=== PATIENT | female | born 1970 | race Caucasian/White ===

== ENCOUNTER 2016-08-21 07:45 | Emergency (ER) | payer MEDICARE, MEDICAID ==
[~2016-08-21] VITALS: Ht 175.3 cm; Wt 86.5 kg
[~2016-08-21 07:45] MED LIST: CEPH-376 PO; CLAR500T3 PO; CLON0.2T PO; DIAZ5TAB PO; FURO-92 PO; FURO-93 PO; LEVE100020 PO; LEVE500T38 PO; MAGN400T7 PO; METO50TA82 PO; ONDA4TAB7 PO; OXYC-229 PO; OXYC30TA74 PO; PANT40TA5 PO; PHEN100C PO; ZOLP10TA PO
[2016-08-21] MEDS ORDERED: morphine SULFATE 10 MG/ML, 1ML IVPush ONE (08:00)
[2016-08-21] MEDS ORDERED: ONDANSETRON 2MG/ML, 2ML IVPush ONE (08:00)
[2016-08-21] MEDS ORDERED: ONDANSETRON 2MG/ML, 2ML ONE (08:12)
[2016-08-21] MEDS ORDERED: MORPHINE SULFATE 4 MG/ML, 1ML ONE (08:12)
[2016-08-21] MEDS ORDERED: HYDROcodone/APAP 10/325 MG TABLET PO PRN (10:30)
[2016-08-21] MEDS ORDERED: HYDROcodone/APAP 10/325 MG TABLET ONE (10:36)
[2016-08-21 11:23] VITALS: BP 118/84
== END 2016-08-21 11:27 | disposition home or self-care (01) ==
LOC: ED 09:02
DX: S33.5XXA Sprain of ligaments of lumbar spine, initial encounter (principal); J44.9 Chronic obstructive pulmonary disease, unspecified; I50.9 Heart failure, unspecified; Z90.89 Acquired absence of other organs; I25.2 Old myocardial infarction; W18.30XA Fall on same level, unspecified, initial encounter; Y93.89 Activity, other specified; Y92.009 Unspecified place in unspecified non-institutional (private) residence as the place of occurrence of the external cause; Y99.9 Unspecified external cause status
CPT/HCPCS: 72110; 96374; 96375; 99284; J2270; J2405

== ENCOUNTER 2016-10-17 15:11 | Emergency (ER) | payer MEDICARE, MEDICAID ==
[~2016-10-17] VITALS: Ht 167.6 cm; Wt 77.0 kg
[2016-10-17] MEDS ORDERED: MORPHINE SULFATE 4 MG/ML, 1ML IVPush PRN (15:30)
[2016-10-17] MEDS ORDERED: PROMETHAZINE 25 MG/ML, 1ML IM ONE (15:30)
[2016-10-17] MEDS ORDERED: SODIUM CHLORIDE FLUSH 10ML SYR IVF ONE (15:30)
[2016-10-17] MEDS ORDERED: DIPHENHYDRAMINE 50 MG/ML, 1ML IVPush ONE (15:30)
[2016-10-17] MEDS ORDERED: SODIUM CHLORIDE 0.9% 1,000ML IVBOLUS ONE (15:30)
[2016-10-17] MEDS ORDERED: PROMETHAZINE 25 MG/ML, 1ML ONE (15:58)
[2016-10-17] MEDS ORDERED: MORPHINE SULFATE 4 MG/ML, 1ML ONE (15:59)
[2016-10-17] MEDS ORDERED: DIPHENHYDRAMINE 50 MG/ML, 1ML ONE (15:59)
[2016-10-17 16:06] LABS: ASPARTATE AMINO TRANSFERASE 33 U/L (15-37); BLOOD UREA NITROGEN 12 mg/dL (7-18)
[2016-10-17] MEDS ORDERED: GABA600T2 PO (16:31)
[2016-10-17] MEDS ORDERED: HYDR-3144 PO (16:31)
[2016-10-17] MEDS ORDERED: NORT50CA PO (16:31)
[2016-10-17] MEDS ORDERED: HYDROcodone/APAP 10/325 MG TABLET PO PRN (17:00)
[2016-10-17] MEDS ORDERED: HYDROcodone/APAP 10/325 MG TABLET ONE (17:40)
[2016-10-17 17:45] VITALS: BP 100/70
== END 2016-10-17 17:50 | disposition home or self-care (01) ==
LOC: ED 16:56
DX: R10.84 Generalized abdominal pain (principal); R11.2 Nausea with vomiting, unspecified; J44.9 Chronic obstructive pulmonary disease, unspecified; I25.2 Old myocardial infarction; G40.909 Epilepsy, unspecified, not intractable, without status epilepticus; Z85.118 Personal history of other malignant neoplasm of bronchus and lung; Z98.84 Bariatric surgery status; Z88.5 Allergy status to narcotic agent; Z88.6 Allergy status to analgesic agent
CPT/HCPCS: 36415; 76700; 80053; 83690; 85025; 85610; 85730; 96372; 99285; J2550

== ENCOUNTER 2016-11-25 01:28 | Emergency (ER) | payer MEDICAID, MEDICARE ==
[~2016-11-25] VITALS: Ht 167.6 cm; Wt 80.0 kg
[~2016-11-25 01:28] MED LIST changes: +GABA600T2 PO; +HYDR-3144 PO; +NORT50CA PO
[2016-11-25] MEDS ORDERED: PROMETHAZINE 25 MG/ML, 1ML IM ONE (02:00)
[2016-11-25] MEDS ORDERED: PROMETHAZINE 25 MG/ML, 1ML ONE (02:05)
[2016-11-25 03:42] VITALS: BP 157/106
== END 2016-11-25 03:44 | disposition home or self-care (01) ==
LOC: ED 02:38
DX: R11.2 Nausea with vomiting, unspecified (principal); I50.9 Heart failure, unspecified; I25.2 Old myocardial infarction; G40.909 Epilepsy, unspecified, not intractable, without status epilepticus; J44.9 Chronic obstructive pulmonary disease, unspecified; Z88.6 Allergy status to analgesic agent; Z88.8 Allergy status to other drugs, medicaments and biological substances
CPT/HCPCS: 96372; 99283; J2550

== ENCOUNTER 2016-12-18 07:57 | Emergency (ER) | payer MEDICARE ==
[~2016-12-18] VITALS: Ht 167.6 cm; Wt 75.4 kg
[~2016-12-18 07:57] MED LIST changes: -HYDR-3144 PO; +HYDR-3245 PO; -LEVE500T38 PO; +LEVE500T54 PO; -OXYC-229 PO; +OXYC-307 PO
[2016-12-18] MEDS ORDERED: SODIUM CHLORIDE FLUSH 10ML SYR IVF ONE (08:30)
[2016-12-18] MEDS ORDERED: SODIUM CHLORIDE 0.9% 1,000ML IVBOLUS ONE (08:30)
[2016-12-18] MEDS ORDERED: HYDROcodone/APAP 5/325 TABLET PO ONE (08:30)
[2016-12-18] MEDS ORDERED: HYDROcodone/APAP 5/325 TABLET ONE (08:43)
[2016-12-18] MEDS ORDERED: OXYcodone/APAP 5/325MG TABLET ONE (10:27)
[2016-12-18] MEDS ORDERED: OXYcodone/APAP 5/325MG TABLET PO ONE (10:30)
[2016-12-18 11:17] VITALS: BP 142/80
== END 2016-12-18 11:19 | disposition home or self-care (01) ==
LOC: ED 10:33
DX: S42.032A Displaced fracture of lateral end of left clavicle, initial encounter for closed fracture (principal); S43.102A Unspecified dislocation of left acromioclavicular joint, initial encounter; I50.9 Heart failure, unspecified; J44.9 Chronic obstructive pulmonary disease, unspecified; W01.0XXA Fall on same level from slipping, tripping and stumbling without subsequent striking against object, initial encounter; Y93.01 Activity, walking, marching and hiking; Y92.480 Sidewalk as the place of occurrence of the external cause; Y99.8 Other external cause status
CPT/HCPCS: 99284

== ENCOUNTER 2017-02-11 07:56 | Emergency (ER) | payer MEDICARE, MEDICAID ==
[~2017-02-11] VITALS: Ht 167.6 cm; Wt 77.2 kg
[2017-02-11] MEDS ORDERED: OXYcodone/APAP 7.5/325MG TABLET PO ONE (08:30)
[2017-02-11] MEDS ORDERED: OXYcodone/APAP 7.5/325MG TABLET ONE (08:30)
[2017-02-11 09:32] LABS: BLOOD UREA NITROGEN 14 mg/dL (7-18)
[2017-02-11 09:42] LABS: HEMATOCRIT 32.2 % (34.6-47.8); HEMOGLOBIN 10.5 g/dL (11.7-16.4); WHITE BLOOD COUNT 6.4 x10^3/uL (3.4-10)
[2017-02-11 10:35] VITALS: BP 146/90
== END 2017-02-11 10:37 | disposition home or self-care (01) ==
LOC: ED 10:20
DX: S20.212A Contusion of left front wall of thorax, initial encounter (principal); S40.012A Contusion of left shoulder, initial encounter; G40.319 Generalized idiopathic epilepsy and epileptic syndromes, intractable, without status epilepticus; X58.XXXA Exposure to other specified factors, initial encounter; Y93.89 Activity, other specified; Y92.89 Other specified places as the place of occurrence of the external cause; Y99.9 Unspecified external cause status
CPT/HCPCS: 36415; 71020; 80048; 82040; 85025; 93005; 99285

== ENCOUNTER 2017-03-12 11:16 | Emergency (ER) | payer MEDICARE, MEDICAID ==
[~2017-03-12] VITALS: Ht 167.6 cm; Wt 81.0 kg
[2017-03-12] MEDS ORDERED: HYDROcodone/APAP 5/325 TABLET PO ONE (11:30)
[2017-03-12] MEDS ORDERED: HYDROcodone/APAP 5/325 TABLET ONE (11:45)
[2017-03-12] MEDS ORDERED: PLEASE ENTER HEIGHT AND WEIGHT MC SCH (12:00)
[2017-03-12] MEDS ORDERED: CYCLOBENZAPRINE 10 MG TABLET ONE (12:17)
[2017-03-12] MEDS ORDERED: OXYC-306 PO (12:21)
[2017-03-12] MEDS ORDERED: CYCLOBENZAPRINE 10 MG TABLET PO ONE (13:00)
[2017-03-12 13:17] VITALS: BP 143/92
== END 2017-03-12 13:36 | disposition home or self-care (01) ==
LOC: ED 11:31
DX: S33.5XXA Sprain of ligaments of lumbar spine, initial encounter (principal); S23.3XXA Sprain of ligaments of thoracic spine, initial encounter; S13.4XXA Sprain of ligaments of cervical spine, initial encounter; J44.9 Chronic obstructive pulmonary disease, unspecified; I11.0 Hypertensive heart disease with heart failure; I50.9 Heart failure, unspecified; I25.2 Old myocardial infarction; Z85.118 Personal history of other malignant neoplasm of bronchus and lung; W01.0XXA Fall on same level from slipping, tripping and stumbling without subsequent striking against object, initial encounter; Y93.89 Activity, other specified; Y92.410 Unspecified street and highway as the place of occurrence of the external cause; Y99.9 Unspecified external cause status
CPT/HCPCS: 72072; 72110; 72125; 99284

== ENCOUNTER → 2017-04-22 | Outpatient (CLI) | payer MEDICARE, MEDICAID ==
[~2017-04-22] MED LIST changes: +OXYC-306 PO
[2017-04-22 14:30] LABS: BASOPHILS # (AUTO) 0.02 x10^3/uL (0-0.1); BASOPHILS % (AUTO) 0 % (0-1); EOSINOPHILS # (AUTO) 0.15 x10^3/uL (0-0.4); EOSINOPHILS % (AUTO) 2 % (1-7); LYMPHOCYTES # (AUTO) 1.47 x10^3/uL (1-3.4); LYMPHOCYTES % (AUTO) 23 % (22-44); MD NO; MEAN CORPUSCULAR HEMOGLOBIN 29.1 pg (27.0-34.8); MEAN CORPUSCULAR HGB CONC 32.5 g/dL (32.4-35.8); MEAN CORPUSCULAR VOLUME 89.7 fL (80-100); MEAN PLATELET VOLUME 7.9 fL (7.4-10.4); MONOCYTES # (AUTO) 0.79 x10^3/uL (0.2-0.8); MONOCYTES % (AUTO) 13 % (2-9); NEUTROPHILS # (AUTO) 3.86 x10^3/uL (1.8-6.8); NEUTROPHILS % (AUTO) 61 % (42-75); PLATELET COUNT 323 x10^3/uL (130-400); RED BLOOD COUNT 3.52 x10^6/uL (3.82-5.3); RED CELL DISTRIBUTION WIDTH 15.4 % (9.6-15.2)
[2017-04-22 14:44] LABS: ALANINE AMINOTRANSFERASE 25 U/L (12-78); ALBUMIN 2.7 g/dL (3.4-5.0); ANION GAP 4 mmol/L (5-15); CALCIUM 8.9 mg/dL (8.5-10.1); CHLORIDE 98 mmol/L (98-107); CREATININE 0.64 mg/dL (0.55-1.02)
[2017-04-22 14:46] LABS: ALKALINE PHOSPHATASE 229 U/L (45-117); BILIRUBIN,TOTAL 0.4 mg/dL (0.2-1.0); TOTAL PROTEIN 6.3 g/dL (6.4-8.2)
== END | disposition home or self-care (01) ==
LOC: LAB 13:44
PROVIDERS: ATTEND Family Medicine
DX: D64.9 Anemia, unspecified (principal)
CPT/HCPCS: 36415; 80053; 85025

== ENCOUNTER 2017-07-05 05:14 | Day surgery (SDC) | payer MEDICARE, MEDICAID ==
[~2017-07-05] VITALS: Ht 167.6 cm; Wt 81.6 kg
[~2017-07-05 05:14] MED LIST changes: +ALBU0.63 NEB; +CLON0.1T PO; +CLON0.2T10 PO; +DIPH12.532 PO; +DIVA125T2 PO; +DIVA250T6 PO; +FENT1PAT77 EXT; +GABA800T2 PO; +LACO150T PO; +LACO50TA PO; +LEVE750T37 PO; +LEVE750T8 PO; +METO25TA35 PO; +OMEP10CA4 PO
[2017-07-05] MEDS ORDERED: LACTATED RINGERS 1,000 ML IV SCH (05:54)
[2017-07-05 05:57] VITALS: BP 114/77
[2017-07-05] MEDS ORDERED: LIDOCAINE-MPF 1%, 2ML INFIL ONE (06:00)
[2017-07-05 06:01] VITALS: BP 114/77
[2017-07-05] MEDS ORDERED: LIDOCAINE-MPF 1%, 2ML ONE (06:05)
[2017-07-05] MEDS ORDERED: LEVE100S6 PO (06:22)
[2017-07-05] MEDS ORDERED: OXYC20TA2 PO (06:24)
[2017-07-05] MEDS ORDERED: TIOT4MIS3 INH ×2 (06:25→06:55)
[2017-07-05] MEDS ORDERED: DIVA250T4 PO ×2 (06:27→06:55)
[2017-07-05] MEDS ORDERED: OxyconTIN ER 20 MG TAB.ER ONE (06:38)
[2017-07-05] MEDS ORDERED: ACETAMINOPHEN 500 MG TABLET ONE (06:40)
[2017-07-05] MEDS ORDERED: BUPIVACAINE/PF 0.25% ONE ×2 (06:43→09:29)
[2017-07-05] MEDS ORDERED: EPINEPHRINE 1 MG/ML, 1ML ONE (06:43)
[2017-07-05] MEDS ORDERED: ACETAMINOPHEN 500 MG TABLET PO ONE (07:00)
[2017-07-05] MEDS ORDERED: OxyconTIN ER 20 MG TAB.ER PO ONE (07:00)
[2017-07-05] MEDS ORDERED: FENTANYL PF 250 MCG/5ML ONE (07:11)
[2017-07-05] MEDS ORDERED: MIDAZOLAM 1 MG/ML, 2ML ONE (07:11)
[2017-07-05] MEDS ORDERED: ONDANSETRON 2MG/ML, 2ML ONE (07:13)
[2017-07-05] MEDS ORDERED: SUCCINYLCHOLINE 20 MG/ML, 10ML ONE (07:13)
[2017-07-05] MEDS ORDERED: PHENYLEPHRINE 10 MG/ML ONE (07:13)
[2017-07-05] MEDS ORDERED: DEXAMETHASONE 4 MG/ML, 1ML ONE (07:13)
[2017-07-05] MEDS ORDERED: PROPOFOL 10 MG/ML, 20ML ONE (07:13)
[2017-07-05] MEDS ORDERED: CEFAZOLIN 1,000 MG ONE (07:13)
[2017-07-05] MEDS ORDERED: KETAMINE 10 MG/ML, 20ML ONE (07:15)
[2017-07-05] MEDS ORDERED: ALBUTEROL SULFATE 2.5 MG/3 ML NPPB PRN (08:00)
[2017-07-05] MEDS ORDERED: PROMETHAZINE 12.5 MG SUPP PR PRN (08:00)
[2017-07-05] MEDS ORDERED: ONDANSETRON 2MG/ML, 2ML IVPush PRN (08:00)
[2017-07-05] MEDS ORDERED: FENTANYL PF 100 MCG/2ML IV PRN (08:00)
[2017-07-05] MEDS ORDERED: morphine SULFATE 10 MG/ML, 1ML IV PRN (08:00)
[2017-07-05] MEDS ORDERED: LABETALOL 5MG/ML, 20ML IV PRN (08:00)
[2017-07-05] MEDS ORDERED: OXYcodone 5 MG/5 ML ORAL.SOL UDC PO PRN (08:00)
[2017-07-05] MEDS ORDERED: MIDAZOLAM 1 MG/ML, 2ML IV PRN (08:00)
[2017-07-05] MEDS ORDERED: hydrALAzine 20 MG/ML, 1ML IV PRN (08:00)
[2017-07-05] MEDS ORDERED: MEPERIDINE/PF 25MG/0.5ML IVPush PRN (08:00)
[2017-07-05] MEDS ORDERED: hydrALAzine 20 MG/ML, 1ML ONE (09:39)
[2017-07-05] MEDS ORDERED: DIAZEPAM 5 MG TABLET ONE (12:40)
[2017-07-05] MEDS ORDERED: DIAZEPAM 5 MG TABLET PO ONE (13:00)
== END 2017-07-05 13:30 ==
LOC: OUT 05:14
PROVIDERS: ATTEND Orthopaedic Surgery
DX: S43.432A Superior glenoid labrum lesion of left shoulder, initial encounter (principal); M19.012 Primary osteoarthritis, left shoulder; M94.8X1 Other specified disorders of cartilage, shoulder; D64.9 Anemia, unspecified; I10 Essential (primary) hypertension; J45.909 Unspecified asthma, uncomplicated; X58.XXXA Exposure to other specified factors, initial encounter; Y93.89 Activity, other specified; Y92.89 Other specified places as the place of occurrence of the external cause; Y99.8 Other external cause status; Z88.8 Allergy status to other drugs, medicaments and biological substances
CPT/HCPCS: 23552; C1713; C1762; J0171; J0330; J0360; J0690; J1100; J2250; J2370; J2405; J2704; J3010; J3490

== ENCOUNTER 2017-07-16 11:30 | Emergency (ER) | payer MEDICARE, MEDICAID ==
[~2017-07-16] VITALS: Ht 167.6 cm; Wt 77.7 kg
[~2017-07-16 11:30] MED LIST changes: +DIVA250T4 PO; +LEVE100S6 PO; +OXYC20TA2 PO; +TIOT4MIS3 INH
[2017-07-16 12:47] LABS: BASOPHILS # (AUTO) 0.01 x10^3/uL (0-0.1); BASOPHILS % (AUTO) 0 % (0-1); EOSINOPHILS # (AUTO) 0.03 x10^3/uL (0-0.4); EOSINOPHILS % (AUTO) 1 % (1-7); LYMPHOCYTES # (AUTO) 0.86 x10^3/uL (1-3.4); LYMPHOCYTES % (AUTO) 19 % (22-44); MD NO; MEAN CORPUSCULAR HEMOGLOBIN 25.7 pg (27.0-34.8); MEAN CORPUSCULAR VOLUME 80.3 fL (80-100); MEAN PLATELET VOLUME 7.3 fL (7.4-10.4); MONOCYTES # (AUTO) 0.16 x10^3/uL (0.2-0.8); MONOCYTES % (AUTO) 4 % (2-9); NEUTROPHILS # (AUTO) 3.54 x10^3/uL (1.8-6.8); NEUTROPHILS % (AUTO) 77 % (42-75); PLATELET COUNT 347 x10^3/uL (130-400); RED BLOOD COUNT 4.15 x10^6/uL (3.82-5.3); RED CELL DISTRIBUTION WIDTH 15.8 % (9.6-15.2)
[2017-07-16 13:00] LABS: ALBUMIN 2.6 g/dL (3.4-5.0); ANION GAP 6 mmol/L (5-15); CALCIUM 8.5 mg/dL (8.5-10.1); CHLORIDE 103 mmol/L (98-107); CREATININE 0.55 mg/dL (0.55-1.02)
[2017-07-16 13:02] LABS: TROPONIN I < 0.015 ng/mL (0.000-0.045)
[2017-07-16] MEDS ORDERED: OXYcodone/APAP 10/325MG TABLET ONE (13:57)
[2017-07-16] MEDS ORDERED: OXYcodone/APAP 10/325MG TABLET PO ONE (14:00)
[2017-07-16 14:30] VITALS: BP 161/96
== END 2017-07-16 14:32 | disposition home or self-care (01) ==
LOC: ED 13:08
DX: S40.012A Contusion of left shoulder, initial encounter (principal); W18.39XA Other fall on same level, initial encounter; Y93.89 Activity, other specified; Y99.8 Other external cause status; Y92.89 Other specified places as the place of occurrence of the external cause
CPT/HCPCS: 36415; 71045; 80048; 82040; 84484; 85025; 93005; 99285

== ENCOUNTER 2017-07-21 12:44 | Emergency (ER) | payer MEDICARE, MEDICAID ==
[~2017-07-21] VITALS: Ht 167.6 cm; Wt 82.4 kg
[2017-07-21 13:26] LABS: BASOPHILS # (AUTO) 0.03 x10^3/uL (0-0.1); BASOPHILS % (AUTO) 1 % (0-1); EOSINOPHILS # (AUTO) 0.11 x10^3/uL (0-0.4); EOSINOPHILS % (AUTO) 2 % (1-7); LYMPHOCYTES # (AUTO) 1.23 x10^3/uL (1-3.4); LYMPHOCYTES % (AUTO) 19 % (22-44); MD NO; MEAN CORPUSCULAR HGB CONC 31.5 g/dL (32.4-35.8); MEAN CORPUSCULAR VOLUME 82.6 fL (80-100); MEAN PLATELET VOLUME 7.7 fL (7.4-10.4); MONOCYTES # (AUTO) 0.43 x10^3/uL (0.2-0.8); MONOCYTES % (AUTO) 7 % (2-9); NEUTROPHILS # (AUTO) 4.66 x10^3/uL (1.8-6.8); NEUTROPHILS % (AUTO) 72 % (42-75); PLATELET COUNT 287 x10^3/uL (130-400); RED BLOOD COUNT 3.45 x10^6/uL (3.82-5.3); RED CELL DISTRIBUTION WIDTH 17.6 % (9.6-15.2)
[2017-07-21 13:37] LABS: ALBUMIN 2.7 g/dL (3.4-5.0); ANION GAP 5 mmol/L (5-15); CALCIUM 8.2 mg/dL (8.5-10.1); CHLORIDE 103 mmol/L (98-107); CREATININE 0.59 mg/dL (0.55-1.02)
[2017-07-21 13:40] LABS: TROPONIN I < 0.015 ng/mL (0.000-0.045)
[2017-07-21 14:00] VITALS: BP 103/63
[2017-07-21] MEDS ORDERED: SODIUM CHLORIDE FLUSH 10ML SYR IVF ONE (15:00)
[2017-07-21] MEDS ORDERED: ACETAMINOPHEN 500 MG TABLET PO PRN (15:30)
[2017-07-21] MEDS ORDERED: SODIUM CHLORIDE FLUSH 10ML SYR IVF PRN (15:30)
[2017-07-21] MEDS ORDERED: DIVALPROEX 250 MG TABLET.DR PO SCH ×2 (16:00→16:15)
[2017-07-21] MEDS ORDERED: IRON SUCROSE COMPLEX 100MG/5ML IV ONE (17:30)
[2017-07-21] MEDS ORDERED: LEVETIRACETAM 100 MG/ML ORAL SOL PO SCH ×2 (21:00)
[2017-07-21] MEDS ORDERED: TEMPLATE NON-FORMULARY MED. (Tiotropium Br/Olodaterol HCl (Stiolto Respimat Inhal Spray) 2 INH SCH ×3 (21:00)
[2017-07-21] MEDS ORDERED: METOPROLOL TARTRATE 25 MG TABLET PO SCH ×3 (21:00)
[2017-07-22] MEDS ORDERED: DIAZEPAM 5 MG TABLET PO SCH ×2 (09:00)
[2017-07-22] MEDS ORDERED: IRON SUCROSE COMPLEX 100MG/5ML IV SCH (09:00)
== END 2017-07-21 15:47 | disposition left against medical advice (07) ==
LOC: ED 15:06 → UNDOADMIN 15:07 → EDIP 15:07 → ED 15:22
DX: D62 Acute posthemorrhagic anemia (principal); R53.1 Weakness; I11.0 Hypertensive heart disease with heart failure; I50.9 Heart failure, unspecified; J44.9 Chronic obstructive pulmonary disease, unspecified; Z85.118 Personal history of other malignant neoplasm of bronchus and lung; I25.2 Old myocardial infarction
CPT/HCPCS: 36415; 71046; 80048; 82040; 83880; 84484; 85025; 99285

== ENCOUNTER 2017-11-14 08:36 | Inpatient (IN) | payer MEDICARE, MEDICAID ==
[~2017-11-14] VITALS: Ht 167.6 cm; Wt 81.5 kg
[~2017-11-14 08:36] MED LIST changes: +DIVA-59 PO; -DIVA250T6 PO
[2017-11-14] MEDS ORDERED: SODIUM CHLORIDE 0.9% 1,000ML IVBOLUS ONE (09:00)
[2017-11-14] MEDS ORDERED: PLEASE ENTER HEIGHT AND WEIGHT MC SCH (09:00)
[2017-11-14] MEDS ORDERED: DIPHENHYDRAMINE 50 MG/ML, 1ML IVPush ONE (09:00)
[2017-11-14] MEDS ORDERED: FAMOTIDINE 20 MG/2 ML IVP ONE (09:00)
[2017-11-14] MEDS ORDERED: ONDANSETRON 2MG/ML, 2ML IVPush ONE ×2 (09:00→12:00)
[2017-11-14] MEDS ORDERED: ONDANSETRON 2MG/ML, 2ML ONE ×3 (09:15→12:07)
[2017-11-14] MEDS ORDERED: FAMOTIDINE 20 MG/2 ML ONE (09:15)
[2017-11-14] MEDS ORDERED: DIPHENHYDRAMINE 50 MG/ML, 1ML ONE (09:15)
[2017-11-14] MEDS ORDERED: MAALOX/HYOSCYAMINE/LIDOCAINE 45 ML BTL ONE (10:17)
[2017-11-14] MEDS ORDERED: PROMETHAZINE 25 MG/ML, 1ML ONE (10:17)
[2017-11-14 10:28] LABS: BASOPHILS # (AUTO) 0.01 x10^3/uL (0-0.1); BASOPHILS % (AUTO) 0 % (0-1); EOSINOPHILS % (AUTO) 0 % (1-7); LYMPHOCYTES # (AUTO) 0.84 x10^3/uL (1-3.4); LYMPHOCYTES % (AUTO) 14 % (22-44); MD NO; MEAN CORPUSCULAR HEMOGLOBIN 25.8 pg (27.0-34.8); MEAN CORPUSCULAR HGB CONC 32.7 g/dL (32.4-35.8); MEAN CORPUSCULAR VOLUME 78.9 fL (80-100); MEAN PLATELET VOLUME 8.4 fL (7.4-10.4); MONOCYTES # (AUTO) 0.23 x10^3/uL (0.2-0.8); MONOCYTES % (AUTO) 4 % (2-9); NEUTROPHILS # (AUTO) 4.85 x10^3/uL (1.8-6.8); NEUTROPHILS % (AUTO) 82 % (42-75); PLATELET COUNT 241 x10^3/uL (130-400); RED BLOOD COUNT 4.23 x10^6/uL (3.82-5.3); RED CELL DISTRIBUTION WIDTH 17.8 % (9.6-15.2)
[2017-11-14 10:29] LABS: ALBUMIN 3.2 g/dL (3.4-5.0); ANION GAP 7 mmol/L (5-15); CALCIUM 8.9 mg/dL (8.5-10.1); CHLORIDE 104 mmol/L (98-107)
[2017-11-14 10:33] LABS: ALANINE AMINOTRANSFERASE 34 U/L (12-78); ALKALINE PHOSPHATASE 267 U/L (45-117); BILIRUBIN,TOTAL 0.3 mg/dL (0.2-1.0); CREATININE 0.56 mg/dL (0.55-1.02); TOTAL PROTEIN 6.9 g/dL (6.4-8.2)
[2017-11-14] MEDS ORDERED: MORPHINE SULFATE 4 MG/ML, 1ML ONE ×2 (10:44→12:07)
[2017-11-14 11:00] LABS: MICROSCOPIC NOT IND
[2017-11-14] MEDS ORDERED: MAALOX/HYOSCYAMINE/LIDOCAINE 45 ML BTL PO ONE (11:00)
[2017-11-14] MEDS ORDERED: MORPHINE SULFATE 4 MG/ML, 1ML IVPush ONE (11:00)
[2017-11-14] MEDS ORDERED: PROMETHAZINE 25 MG/ML, 1ML IM ONE (11:00)
[2017-11-14 11:05] LABS: CULTURE INDICATED? NO
[2017-11-14] MEDS ORDERED: OXYMETAZOLINE NASAL SPRAY 0.05%, 15ML ONE (11:58)
[2017-11-14] MEDS ORDERED: OXYMETAZOLINE NASAL SPRAY 0.05%, 15ML NAS ONE (12:00)
[2017-11-14] MEDS ORDERED: morphine SULFATE 10 MG/ML, 1ML IVPush ONE (12:00)
[2017-11-14] MEDS ORDERED: NORT10CA PO (12:59)
[2017-11-14] MEDS ORDERED: OXYC30TA PO (12:59)
[2017-11-14] MEDS ORDERED: POLYETHYLENE GLYCOL 17 GM PACKET PO PRN (13:00)
[2017-11-14] MEDS ORDERED: DIPH25CA61 PO (13:00)
[2017-11-14] MEDS ORDERED: ACETAMINOPHEN 325 MG TABLET PO PRN (13:00)
[2017-11-14] MEDS ORDERED: DOCUSATE 100 MG CAPSULE PO PRN (13:00)
[2017-11-14 13:12] VITALS: BP 202/105
[2017-11-14] MEDS ORDERED: ENALAPRILAT 1.25 MG/ML, 2ML ONE (13:20)
[2017-11-14] MEDS ORDERED: DIPHENHYDRAMINE 25 MG CAPSULE PO PRN (13:30)
[2017-11-14] MEDS ORDERED: ENALAPRILAT 1.25 MG/ML, 2ML IV PRN (13:30)
[2017-11-14] MEDS ORDERED: hydrALAzine 20 MG/ML, 1ML IV PRN (13:30)
[2017-11-14] MEDS: OXYcodone IR 30 MG TABLET PO SCH ×3 (13:31→21:31)
[2017-11-14 13:55] VITALS: BP 177/102
[2017-11-14] MEDS: NS + 20MEQ KCL 1,000 ML IV SCH (14:09)
[2017-11-14 15:20] VITALS: BP 181/102
[2017-11-14] MEDS: DIVALPROEX 250 MG TABLET.DR PO SCH ×2 (15:52→20:11)
[2017-11-14] MEDS: GABAPENTIN 300 MG CAPSULE PO SCH ×2 (15:52→20:10)
[2017-11-14 17:33] VITALS: BP 110/71
[2017-11-14 19:04] VITALS: BP 104/69
[2017-11-14] MEDS: PROMETHAZINE 25 MG/ML, 1ML IM PRN (20:10)
[2017-11-14] MEDS: (Tiotropium Br/Olodaterol HCl (Stiolto Respimat Inhal Spray) 2 HOMEMEDPO SCH (20:11)
[2017-11-14] MEDS: NORTRIPTYLINE 10 MG CAPSULE PO SCH (20:11)
[2017-11-14] MEDS: METOPROLOL TARTRATE 50 MG TABLET PO SCH (20:12)
[2017-11-14] MEDS: LEVETIRACETAM 100 MG/ML ORAL SOL PO SCH (21:07)
[2017-11-15 01:17] VITALS: BP 125/79
[2017-11-15] MEDS: OXYcodone IR 30 MG TABLET PO PRN ×6 (01:24→21:54)
[2017-11-15] MEDS: NS + 20MEQ KCL 1,000 ML IV SCH (02:45)
[2017-11-15 04:42] LABS: BASOPHILS # (AUTO) 0.02 x10^3/uL (0-0.1); BASOPHILS % (AUTO) 0 % (0-1); EOSINOPHILS # (AUTO) 0.02 x10^3/uL (0-0.4); EOSINOPHILS % (AUTO) 0 % (1-7); LYMPHOCYTES # (AUTO) 2.09 x10^3/uL (1-3.4); LYMPHOCYTES % (AUTO) 34 % (22-44); MD NO; MEAN CORPUSCULAR HGB CONC 32.6 g/dL (32.4-35.8); MEAN CORPUSCULAR VOLUME 79.8 fL (80-100); MEAN PLATELET VOLUME 8.4 fL (7.4-10.4); MONOCYTES # (AUTO) 0.48 x10^3/uL (0.2-0.8); MONOCYTES % (AUTO) 8 % (2-9); NEUTROPHILS # (AUTO) 3.61 x10^3/uL (1.8-6.8); NEUTROPHILS % (AUTO) 58 % (42-75); PLATELET COUNT 258 x10^3/uL (130-400); RED BLOOD COUNT 3.61 x10^6/uL (3.82-5.3)
[2017-11-15 04:56] LABS: CALCIUM 8.2 mg/dL (8.5-10.1); CHLORIDE 107 mmol/L (98-107)
[2017-11-15 04:58] LABS: ANION GAP 5 mmol/L (5-15)
[2017-11-15] MEDS: ONDANSETRON 2MG/ML, 2ML IVPush PRN (06:16)
[2017-11-15 06:40] VITALS: BP 126/83
[2017-11-15 06:47] VITALS: BP 126/83
[2017-11-15] MEDS: PANTOPROZOLE 40MG TABLET PO SCH (08:54)
[2017-11-15] MEDS: DIVALPROEX 250 MG TABLET.DR PO SCH ×3 (08:55→21:03)
[2017-11-15] MEDS: GABAPENTIN 300 MG CAPSULE PO SCH ×3 (08:55→21:02)
[2017-11-15 08:56] VITALS: BP 138/83
[2017-11-15] MEDS: METOPROLOL TARTRATE 50 MG TABLET PO SCH ×2 (09:26→21:03)
[2017-11-15] MEDS: (Tiotropium Br/Olodaterol HCl (Stiolto Respimat Inhal Spray) 2 HOMEMEDPO SCH ×2 (09:26→21:00)
[2017-11-15] MEDS: LEVETIRACETAM 100 MG/ML ORAL SOL PO SCH (10:06)
[2017-11-15] MEDS: PROMETHAZINE 25 MG/ML, 1ML IM PRN ×2 (10:16→19:30)
[2017-11-15 12:56] VITALS: BP 136/82
[2017-11-15 19:05] VITALS: BP 122/83
[2017-11-15] MEDS: NORTRIPTYLINE 10 MG CAPSULE PO SCH (21:02)
[2017-11-15] MEDS: LEVETIRACETAM 500 MG TABLET PO SCH (21:54)
[2017-11-16 00:48] VITALS: BP 104/64
[2017-11-16] MEDS ORDERED: ONDANSETRON 4 MG TABLET ONE (02:37)
[2017-11-16] MEDS: ONDANSETRON 2MG/ML, 2ML IVPush PRN (02:39)
[2017-11-16] MEDS: OXYcodone IR 30 MG TABLET PO PRN ×3 (02:39→11:30)
[2017-11-16 04:42] LABS: BASOPHILS # (AUTO) 0.02 x10^3/uL (0-0.1); BASOPHILS % (AUTO) 0 % (0-1); EOSINOPHILS # (AUTO) 0.02 x10^3/uL (0-0.4); EOSINOPHILS % (AUTO) 0 % (1-7); LYMPHOCYTES # (AUTO) 1.23 x10^3/uL (1-3.4); LYMPHOCYTES % (AUTO) 15 % (22-44); MD NO; MEAN CORPUSCULAR HEMOGLOBIN 25.9 pg (27.0-34.8); MEAN CORPUSCULAR HGB CONC 32.4 g/dL (32.4-35.8); MEAN CORPUSCULAR VOLUME 79.9 fL (80-100); MEAN PLATELET VOLUME 8.3 fL (7.4-10.4); MONOCYTES % (AUTO) 10 % (2-9); NEUTROPHILS # (AUTO) 5.97 x10^3/uL (1.8-6.8); NEUTROPHILS % (AUTO) 74 % (42-75); PLATELET COUNT 273 x10^3/uL (130-400); RED BLOOD COUNT 3.77 x10^6/uL (3.82-5.3); RED CELL DISTRIBUTION WIDTH 18.5 % (9.6-15.2)
[2017-11-16 06:54] VITALS: BP 105/67
[2017-11-16] MEDS: GABAPENTIN 300 MG CAPSULE PO SCH (08:36)
[2017-11-16] MEDS: LEVETIRACETAM 500 MG TABLET PO SCH (08:36)
[2017-11-16] MEDS: DIVALPROEX 250 MG TABLET.DR PO SCH (08:36)
[2017-11-16] MEDS: PANTOPROZOLE 40MG TABLET PO SCH (08:36)
[2017-11-16] MEDS: METOPROLOL TARTRATE 50 MG TABLET PO SCH (08:36)
[2017-11-16] MEDS: (Tiotropium Br/Olodaterol HCl (Stiolto Respimat Inhal Spray) 2 HOMEMEDPO SCH (08:38)
[2017-11-16] MEDS ORDERED: PANT40TA5 PO (11:19)
== END 2017-11-16 12:45 | disposition home or self-care (01) | DRG 391 ==
LOC: ED 11:21 → EDIP 12:09 → 3NW 13:08 → DCLOUNGE 11-16 12:40
PROVIDERS: ADMIT Family Medicine; ATTEND Family Medicine
DX: A08.4 Viral intestinal infection, unspecified (principal); K25.4 Chronic or unspecified gastric ulcer with hemorrhage; J96.10 Chronic respiratory failure, unspecified whether with hypoxia or hypercapnia; Z87.11 Personal history of peptic ulcer disease; Z90.5 Acquired absence of kidney; D64.9 Anemia, unspecified; G40.909 Epilepsy, unspecified, not intractable, without status epilepticus; G89.29 Other chronic pain; I11.0 Hypertensive heart disease with heart failure; I25.2 Old myocardial infarction; I50.9 Heart failure, unspecified; J44.9 Chronic obstructive pulmonary disease, unspecified; R04.0 Epistaxis; Z79.891 Long term (current) use of opiate analgesic; Z85.118 Personal history of other malignant neoplasm of bronchus and lung; Z86.73 Personal history of transient ischemic attack (TIA), and cerebral infarction without residual deficits; Z88.8 Allergy status to other drugs, medicaments and biological substances; Z98.84 Bariatric surgery status; Z90.49 Acquired absence of other specified parts of digestive tract
CPT/HCPCS: 36415; 80048; 80053; 81003; 83690; 83735; 84100; 85025; 86677; 96361; 96374; 96375; 96376; 99285; J2405; J2550; J3480; J1200; J2270; J7030; S0028

== ENCOUNTER 2017-11-18 15:24 | Emergency (ER) | payer MEDICARE, MEDICAID ==
[~2017-11-18] VITALS: Ht 167.6 cm; Wt 82.0 kg
[~2017-11-18 15:24] MED LIST changes: +DIPH25CA61 PO; +NORT10CA PO; +OXYC30TA PO
[2017-11-18] MEDS ORDERED: HYDROmorphone 2 MG/ML, 1ML ONE (15:58)
[2017-11-18] MEDS ORDERED: ONDANSETRON 2MG/ML, 2ML ONE (15:58)
[2017-11-18] MEDS ORDERED: HYDROmorphone 2 MG/ML, 1ML IVPush PRN (16:00)
[2017-11-18] MEDS ORDERED: SODIUM CHLORIDE FLUSH 10ML SYR IVF ONE (16:00)
[2017-11-18] MEDS ORDERED: ONDANSETRON 2MG/ML, 2ML IVPush ONE (16:00)
[2017-11-18 17:06] LABS: ALBUMIN 2.7 g/dL (3.4-5.0); ANION GAP 3 mmol/L (5-15); CALCIUM 8.3 mg/dL (8.5-10.1); CHLORIDE 97 mmol/L (98-107)
[2017-11-18 17:08] LABS: MEAN CORPUSCULAR HEMOGLOBIN 26.2 pg (27.0-34.8); MEAN CORPUSCULAR HGB CONC 33.1 g/dL (32.4-35.8); MEAN CORPUSCULAR VOLUME 79.2 fL (80-100); MEAN PLATELET VOLUME 8.1 fL (7.4-10.4); PLATELET COUNT 301 x10^3/uL (130-400); RED BLOOD COUNT 3.45 x10^6/uL (3.82-5.3); RED CELL DISTRIBUTION WIDTH 17.5 % (9.6-15.2)
[2017-11-18 17:09] LABS: ALANINE AMINOTRANSFERASE 45 U/L (12-78); ALKALINE PHOSPHATASE 253 U/L (45-117); BILIRUBIN,TOTAL 0.5 mg/dL (0.2-1.0); CREATININE 0.51 mg/dL (0.55-1.02); TOTAL PROTEIN 6.3 g/dL (6.4-8.2)
[2017-11-18 17:15] LABS: MICROSCOPIC NOT IND
[2017-11-18 17:17] LABS: INTERNATIONAL NORMALIZED RATIO 1.03 (0.93-1.1); PROTHROMBIN TIME 10.7 Seconds (9.6-11.5)
[2017-11-18 17:19] LABS: CULTURE INDICATED? NO
[2017-11-18 17:36] LABS: BASOPHILS # (AUTO) 0.02 x10^3/uL (0-0.1); BASOPHILS % (AUTO) 0 % (0-1); EOSINOPHILS # (AUTO) 0.19 x10^3/uL (0-0.4); EOSINOPHILS % (AUTO) 3 % (1-7); LYMPHOCYTES # (AUTO) 1.44 x10^3/uL (1-3.4); LYMPHOCYTES % (AUTO) 26 % (22-44); MD SCAN; MONOCYTES # (AUTO) 0.55 x10^3/uL (0.2-0.8); MONOCYTES % (AUTO) 10 % (2-9); NEUTROPHILS % (AUTO) 61 % (42-75)
[2017-11-18 18:19] VITALS: BP 132/72
== END 2017-11-18 18:21 | disposition home or self-care (01) ==
LOC: ED 15:47
DX: K29.00 Acute gastritis without bleeding (principal); D64.9 Anemia, unspecified; J44.9 Chronic obstructive pulmonary disease, unspecified; I11.0 Hypertensive heart disease with heart failure; I50.9 Heart failure, unspecified; G40.909 Epilepsy, unspecified, not intractable, without status epilepticus; I25.2 Old myocardial infarction
CPT/HCPCS: 36415; 74022; 76700; 80053; 81003; 83690; 85025; 85610; 85730; 96374; 96375; 99285; J1170; J2405

== ENCOUNTER 2018-05-21 17:29 | Observation (INO) | payer OTHER, MEDICAID ==
[~2018-05-21] VITALS: Ht 165.1 cm; Wt 76.1 kg
[~2018-05-21 17:29] MED LIST changes: -CLON0.1T PO; +CLON0.1T22 PO; -GABA600T2 PO; +GABA600T7 PO; -GABA800T2 PO; +GABA800T5 PO; -NORT50CA PO; +NORT50CA52 PO
[2018-05-21] MEDS ORDERED: ASPIRIN 81 MG TABLET CHEW PO ONE (18:30)
[2018-05-21] MEDS ORDERED: SODIUM CHLORIDE FLUSH 10ML SYR IVF ONE (18:30)
[2018-05-21] MEDS ORDERED: NITROGLYCERIN SINGLE TAB 0.4 MG SL PRN (18:30)
[2018-05-21] MEDS ORDERED: VALP250C59 PO (18:45)
[2018-05-21] MEDS ORDERED: CYCL-259 PO (18:45)
[2018-05-21] MEDS ORDERED: LISI-167 PO (18:45)
[2018-05-21] MEDS ORDERED: OXYC27CA PO (18:45)
--- NOTE | 2018-05-21 19:06 | NUR ---
RECEIVED REPORT FROM FRANTZ DUNCAN. PT RESTING IN BED, IV HAS BEEN STARTED. PT IS C/O CHEST PAIN. WILL MEDICATE WITH ORDERED MEDS. FAMILY AT BEDSIDE. PT ON ALL MONITORS.
[2018-05-21 19:13] LABS: BASOPHILS # (AUTO) 0.02 x10^3/uL (0-0.1); BASOPHILS % (AUTO) 0 % (0-1); EOSINOPHILS # (AUTO) 0.06 x10^3/uL (0-0.4); EOSINOPHILS % (AUTO) 1 % (1-7); LYMPHOCYTES # (AUTO) 1.62 x10^3/uL (1-3.4); LYMPHOCYTES % (AUTO) 29 % (22-44); MD NO; MEAN CORPUSCULAR HEMOGLOBIN 23.9 pg (27.0-34.8); MEAN CORPUSCULAR HGB CONC 31.7 g/dL (32.4-35.8); MEAN CORPUSCULAR VOLUME 75.3 fL (80-100); MEAN PLATELET VOLUME 7.7 fL (7.4-10.4); MONOCYTES # (AUTO) 0.53 x10^3/uL (0.2-0.8); MONOCYTES % (AUTO) 10 % (2-9); NEUTROPHILS # (AUTO) 3.33 x10^3/uL (1.8-6.8); NEUTROPHILS % (AUTO) 60 % (42-75); PLATELET COUNT 505 x10^3/uL (130-400); RED BLOOD COUNT 4.14 x10^6/uL (3.82-5.3); RED CELL DISTRIBUTION WIDTH 18.3 % (9.6-15.2)
[2018-05-21] MEDS ORDERED: NITROGLYCERIN SINGLE TAB 0.4 MG SL ONE (19:17)
[2018-05-21 19:19] LABS: ALANINE AMINOTRANSFERASE 33 U/L (12-78); ALBUMIN 3.1 g/dL (3.4-5.0); ANION GAP 7 mmol/L (5-15); CALCIUM 8.7 mg/dL (8.5-10.1); CHLORIDE 106 mmol/L (98-107); CREATININE 0.71 mg/dL (0.55-1.02)
[2018-05-21 19:20] LABS: D-DIMER 1.28 ug/mlFEU (0.00-0.52); PROTHROMBIN TIME 10.6 Seconds (9.6-11.5)
[2018-05-21 19:23] LABS: ALKALINE PHOSPHATASE 236 U/L (45-117); BILIRUBIN,TOTAL 0.1 mg/dL (0.2-1.0); TOTAL PROTEIN 6.9 g/dL (6.4-8.2); TROPONIN I < 0.015 ng/mL (0.000-0.045)
[2018-05-21] MEDS ORDERED: MORPHINE SULFATE 4 MG/ML, 1ML IVPush PRN (20:00)
[2018-05-21] MEDS ORDERED: SODIUM CHLORIDE 0.9% 1,000ML IVBOLUS ONE (20:00)
[2018-05-21] MEDS ORDERED: ONDANSETRON 2MG/ML, 2ML IVPush ONE (20:00)
[2018-05-21] MEDS ORDERED: ONDANSETRON 2MG/ML, 2ML ONE (20:11)
[2018-05-21] MEDS ORDERED: MORPHINE SULFATE 4 MG/ML, 1ML ONE (20:12)
--- NOTE | 2018-05-21 20:30 | NUR ---
PT IV BLEW WHILE GIVING ORDERED MEDS FOR PAIN. PT DID NOT HAVE ANY PAIN RELEIF WITH ORDERED NTG. UNABLE TO PLACE NEW IV, 1 UNSUCCESSFUL ATTEMPT. ANOTHER RN ASKED FOR ASSIST WITH NEW IV PLACEMENT. INFULTRATED IV REMOVED.
--- NOTE | 2018-05-21 20:38 | NUR ---
need new IV for CT.
--- NOTE | 2018-05-21 21:00 | NUR ---
LUNCH RN: LARGE BORE PIV PLACED.
[2018-05-21] MEDS ORDERED: OMNIPAQUE 350 MG/ML, 100ML BOTTLE ONE (21:28)
[2018-05-21] MEDS ORDERED: SODIUM CHLORIDE FLUSH 10ML SYR IVF PRN (22:30)
--- NOTE | 2018-05-21 22:45 | NUR ---
ADMITTING DOCTOR AT BEDSIDE
--- NOTE | 2018-05-21 22:54 | NUR ---
REPORT GIVEN TO PERLA KAM
[2018-05-21] MEDS ORDERED: NITROGLYCERIN 0.4 MG BOTTLE (25 TABS) SL PRN (23:00)
[2018-05-21] MEDS ORDERED: DIPHENHYDRAMINE 25 MG CAPSULE PO PRN (23:00)
[2018-05-21] MEDS ORDERED: NITROGLYCERIN 0.4 MG/SPRAY SL PRN (23:00)
[2018-05-21] MEDS ORDERED: ACETAMINOPHEN 325 MG TABLET PO PRN (23:00)
[2018-05-21] MEDS ORDERED: ENOXAPARIN 40 MG/0.4 ML SQ SCH (23:00)
[2018-05-21 23:19] LABS: CHOLESTEROL, TOTAL 166 mg/dL (140-239); TRIGLYCERIDES 66 mg/dL (50-200); VLDL CHOLESTEROL 13 mg/dL (0-25)
[2018-05-21 23:22] VITALS: BP 147/92
[2018-05-21 23:22] LABS: CHOL/HDL RATIO 2.6; HDL CHOL % 39 % (28-40); HDL CHOLESTEROL (DIRECT) 65 mg/dL (40-60); LDL CHOLESTEROL,CALCULATED 88 mg/dL (54-169); LDL/HDL RATIO 1.4 (0.5-3.0); TROPONIN I < 0.015 ng/mL (0.000-0.045)
[2018-05-22 00:23] VITALS: BP 154/92
[2018-05-22] MEDS: CYCLOBENZAPRINE 10 MG TABLET PO SCH ×3 (00:27→16:48)
[2018-05-22] MEDS: GABAPENTIN 300 MG CAPSULE PO SCH ×3 (00:27→16:47)
[2018-05-22] MEDS: OXYcodone IR 30 MG TABLET PO SCH ×4 (00:27→18:14)
[2018-05-22] MEDS: DIVALPROEX 250 MG TABLET.DR PO SCH ×3 (00:28→16:47)
[2018-05-22] MEDS: LEVETIRACETAM 500 MG TABLET PO SCH ×2 (00:28→10:01)
[2018-05-22] MEDS ORDERED: NORTRIPTYLINE 10 MG CAPSULE PO SCH ×2 (00:30→21:00)
[2018-05-22 01:20] VITALS: BP 113/74
[2018-05-22 02:30] LABS: TROPONIN I < 0.015 ng/mL (0.000-0.045)
[2018-05-22 02:34] LABS: ANION GAP 7 mmol/L (5-15); CALCIUM 8.3 mg/dL (8.5-10.1); CHLORIDE 105 mmol/L (98-107); CREATININE 0.64 mg/dL (0.55-1.02)
[2018-05-22] MEDS ORDERED: PANTOPROZOLE 40MG TABLET PO SCH (06:00)
[2018-05-22] MEDS ORDERED: ASPIRIN 325 MG TABLET EC PO SCH (06:00)
[2018-05-22 06:37] VITALS: BP 129/86
[2018-05-22 07:57] VITALS: BP 123/84
[2018-05-22] MEDS ORDERED: VALPROIC ACID 250 MG PO SCH (09:00)
[2018-05-22] MEDS ORDERED: LISINOPRIL 10 MG TABLET PO SCH (09:00)
[2018-05-22] MEDS ORDERED: GABAPENTIN 300 MG CAPSULE PO SCH (09:00)
[2018-05-22] MEDS: OXYCODONE MYRISTATE 27 MG PO SCH ×2 (09:00→16:00)
[2018-05-22] MEDS ORDERED: SODIUM CHLORIDE FLUSH 10ML SYR IVF SCH (09:00)
[2018-05-22] MEDS ORDERED: CYCLOBENZAPRINE 10 MG TABLET PO SCH (09:00)
[2018-05-22] MEDS ORDERED: DIVALPROEX SODIUM 250 MG PO SCH (09:00)
[2018-05-22] MEDS ORDERED: LEVETIRACETAM 500 MG TABLET PO SCH (09:00)
[2018-05-22] MEDS ORDERED: Tiotropium Br/Olodaterol HCl (Stiolto Respimat Inhal Spray) INH SCH (09:00)
[2018-05-22 11:21] VITALS: BP 127/85
[2018-05-22 12:53] VITALS: BP 130/84
== END 2018-05-22 20:03 | disposition home or self-care (01) ==
LOC: ED 19:37 → EDIP 22:23 → INTOOBSV 22:23 → 5SO 23:41
PROVIDERS: ADMIT Internal Medicine; ATTEND Internal Medicine
DX: R07.89 Other chest pain (principal); J96.10 Chronic respiratory failure, unspecified whether with hypoxia or hypercapnia; G40.909 Epilepsy, unspecified, not intractable, without status epilepticus; J44.9 Chronic obstructive pulmonary disease, unspecified; G89.4 Chronic pain syndrome; E78.5 Hyperlipidemia, unspecified; F11.20 Opioid dependence, uncomplicated; I11.0 Hypertensive heart disease with heart failure; I25.2 Old myocardial infarction; I50.9 Heart failure, unspecified; Z79.899 Other long term (current) drug therapy; Z85.118 Personal history of other malignant neoplasm of bronchus and lung; Z87.11 Personal history of peptic ulcer disease; Z90.5 Acquired absence of kidney; Z98.84 Bariatric surgery status; Z99.81 Dependence on supplemental oxygen
CPT/HCPCS: 36415; 71045; 71275; 80048; 80053; 80061; 83880; 84484; 85025; 85379; 85610; 85730; 93005; 93306; 96372; 96374; 96375; 99284; G0378; J1650; J2405; J7030; Q9967

== ENCOUNTER 2018-08-14 18:21 | Emergency (ER) | payer MEDICAID, OTHER ==
[~2018-08-14] VITALS: Ht 165.1 cm; Wt 82.0 kg
[~2018-08-14 18:21] MED LIST changes: +CYCL-259 PO; +LISI-167 PO; +OXYC27CA PO; +VALP250C59 PO
--- NOTE | 2018-08-14 18:30 | NUR ---
PT BROUGHT IN BY AMBULANCE WITH N/V/D TODAY. PT DROWSY AND NOT ABLE TO STATE WHAT THE YEAR IS BUT ALERT TO ALL ELSE. AT BEDSIDE. STATES SHE WAS FINE TODAY AND WENT TO DOCTOR'S OFFICE.
[2018-08-14] MEDS ORDERED: PROMETHAZINE 25 MG/ML, 1ML IM ONE (19:00)
[2018-08-14] MEDS ORDERED: PROMETHAZINE 25 MG/ML, 1ML ONE (19:38)
--- NOTE | 2018-08-14 19:41 | NUR ---
PT HAS NOT VOMITED SINCE ARRIVAL AND REMAINS DROWSY BUT AROUSABLE. PT ASSISTED TO BATHROOM CONNECTED TO ROOM WITH ASSISTANCE OF TO GIVE URINE SAMPLE. AWAITING FOR LAB REDRAW. TO BE MEDICATED PER ORDERS FOR NAUSEA
[2018-08-14 20:16] LABS: MICROSCOPIC NOT IND
[2018-08-14 20:19] LABS: CULTURE INDICATED? NO
--- NOTE | 2018-08-14 20:21 | NUR ---
ON RETURN FROM ULTRASOUND LAB AT BEDSIDE GETTING REDRAW
--- NOTE | 2018-08-14 20:55 | NUR ---
DROWSY, RESTING WITH EYES CLOSED. AWAITING RE-EVAL. PT STATES NAUSEA IMPROVED SINCE MEDICATED.
[2018-08-14 21:04] LABS: MEAN CORPUSCULAR HEMOGLOBIN 24.7 pg (27.0-34.8); MEAN CORPUSCULAR HGB CONC 31.8 g/dL (32.4-35.8); MEAN CORPUSCULAR VOLUME 77.7 fL (80-100); MEAN PLATELET VOLUME 8.7 fL (7.4-10.4); PLATELET COUNT 326 x10^3/uL (130-400); RED BLOOD COUNT 4.07 x10^6/uL (3.82-5.3); RED CELL DISTRIBUTION WIDTH 21.4 % (9.6-15.2)
[2018-08-14 21:05] LABS: MD YES
--- NOTE | 2018-08-14 21:06 | NUR ---
REPORT TO TONYA DUNCAN
[2018-08-14 21:12] LABS: ALANINE AMINOTRANSFERASE 65 U/L (12-78); ANION GAP 6 mmol/L (5-15); CALCIUM 8.5 mg/dL (8.5-10.1); CHLORIDE 104 mmol/L (98-107)
[2018-08-14 21:15] LABS: ALKALINE PHOSPHATASE 343 U/L (45-117); BILIRUBIN,TOTAL 0.1 mg/dL (0.2-1.0); TOTAL PROTEIN 6.6 g/dL (6.4-8.2)
--- NOTE | 2018-08-14 21:20 | NUR ---
BEDSIDE REPORT FROM PERLA BROOKS. PT LAYING IN GURNEY W/ EYES CLOSED. EVEN/REGULAR RESPIRATIONS NOTED; SPO2 >90% ON BASELINE O2 BY NC. PT ARROUSABLE TO SPEECH AND LIGHT PHYSICAL STIM THEN RETURNS QUICKLY TO SLEEP. PINPOINT PUPILS. AIRWAY PATENT. PT ANSWERS QUESTIONS APPROPRIATELY. DENIES PAIN. BP/SPO2 MONITORING IN PLACE.
[2018-08-14 21:25] LABS: BAND#(MANUAL) 0.16 x10^3/uL; BANDS%(MANUAL) 2 % (0-7); BASOS#(MANUAL) 0.16 x10^3/uL (0-0.1); BASOS% (MANUAL) 2 % (0-1); EOS#(MANUAL) 0.16 x10^3/uL (0.0-0.4); EOS% (MANUAL) 2 % (1-7); LYMPH#(MANUAL) 1.48 x10^3/uL (1-3.4); LYMPHS% (MANUAL) 19 % (22-44); MONOS#(MANUAL) 0.47 x10^3/uL (0.3-2.7); MONOS% (MANUAL) 6 % (2-9); SEG#(MANUAL) 5.38 x10^3/uL (1.8-6.8); SEGS% (MANUAL) 69 % (42-75)
[2018-08-14 21:27] LABS: HYPOCHROMIA 1+; MICROCYTOSIS 2+; OVALOCYTES 1+
[2018-08-14 21:30] LABS: <PLT MORPHOLOGY> NORMAL PLT MORPH
[2018-08-14 21:32] LABS: <PLATELET ESTIMATE> ADEQUATE
[2018-08-14 21:33] VITALS: BP 93/55
== END 2018-08-14 22:05 | disposition home or self-care (01) ==
LOC: ED 20:16
DX: K52.9 Noninfective gastroenteritis and colitis, unspecified (principal); E78.5 Hyperlipidemia, unspecified; I25.2 Old myocardial infarction; G40.909 Epilepsy, unspecified, not intractable, without status epilepticus; I11.0 Hypertensive heart disease with heart failure; I50.9 Heart failure, unspecified; Z85.118 Personal history of other malignant neoplasm of bronchus and lung; Z99.81 Dependence on supplemental oxygen
CPT/HCPCS: 36415; 76700; 80053; 81003; 83690; 85025; 96372; 99284; J2550

== ENCOUNTER 2018-09-01 23:03 | Emergency (ER) | payer OTHER ==
[~2018-09-01] VITALS: Ht 167.6 cm; Wt 84.7 kg
--- NOTE | 2018-09-02 00:08 | NUR ---
BREAK RN: Pt to imaging, at this time, with tech via As Seen on TV.
--- NOTE | 2018-09-02 00:20 | NUR ---
BREAK RN: Pt back to room from imaging.
[2018-09-02 00:23] LABS: ALBUMIN 2.7 g/dL (3.4-5.0); ANION GAP 11 mmol/L (5-15); CALCIUM 7.9 mg/dL (8.5-10.1); CHLORIDE 104 mmol/L (98-107); SALICYLATE LEVEL 2.8 mg/dL (2.8-20.0)
[2018-09-02 00:26] LABS: ACETAMINOPHEN < 2 mcg/mL (10-30); ALANINE AMINOTRANSFERASE 24 U/L (12-78); ALKALINE PHOSPHATASE 267 U/L (45-117); BILIRUBIN,TOTAL < 0.1 mg/dL (0.2-1.0); CREATININE 0.81 mg/dL (0.55-1.02); TOTAL PROTEIN 6.4 g/dL (6.4-8.2); TROPONIN I < 0.015 ng/mL (0.000-0.045)
--- NOTE | 2018-09-02 01:00 | NUR ---
Labs at bedside for redraw.
--- NOTE | 2018-09-02 01:08 | NUR ---
Pt awake and a+ox4 at this time. Vss. Call light within reach. Ua sent to lab.
[2018-09-02 01:25] LABS: MICROSCOPIC AUTO
[2018-09-02 01:29] LABS: CULTURE INDICATED? YES
[2018-09-02 01:35] LABS: AMPHETAMINE SCREEN, URINE Negative (Negative); BARBITURATE SCREEN, URINE Negative (Negative); BENZODIAZEPINE SCREEN, URINE Negative (Negative); CANNABINOID SCREEN, URINE Negative (Negative); COCAINE SCREEN, URINE Negative (Negative); METHADONE SCREEN, URINE Negative (Negative); OPIATE SCREEN, URINE Positive (Negative)
[2018-09-02 01:43] LABS: MEAN CORPUSCULAR HEMOGLOBIN 25.8 pg (27.0-34.8); MEAN CORPUSCULAR HGB CONC 32.6 g/dL (32.4-35.8); MEAN CORPUSCULAR VOLUME 79.1 fL (80-100); MEAN PLATELET VOLUME 6.8 fL (7.4-10.4); PLATELET COUNT 394 x10^3/uL (130-400); RED BLOOD COUNT 4.02 x10^6/uL (3.82-5.3); RED CELL DISTRIBUTION WIDTH 22.7 % (9.6-15.2)
[2018-09-02 01:47] LABS: BASOPHILS # (AUTO) 0.02 x10^3/uL (0-0.1); BASOPHILS % (AUTO) 0 % (0-1); EOSINOPHILS % (AUTO) 0 % (1-7); LYMPHOCYTES % (AUTO) 14 % (22-44); MD SCAN; MONOCYTES # (AUTO) 0.24 x10^3/uL (0.2-0.8); MONOCYTES % (AUTO) 3 % (2-9); NEUTROPHILS # (AUTO) 6.51 x10^3/uL (1.8-6.8); NEUTROPHILS % (AUTO) 83 % (42-75)
--- NOTE | 2018-09-02 02:01 | NUR ---
Pt sleeping comfortably on gurney. Rr even and unlabored. Easily roused to name.
--- NOTE | 2018-09-02 02:34 | NUR ---
Pt attempted to ambulate to bathroom. Unsuccessful and states not even able to sit up all the way. aware.
[2018-09-02 03:48] VITALS: BP 118/63
== END 2018-09-02 04:45 | disposition home or self-care (01) ==
LOC: ED 23:32
DX: R41.82 Altered mental status, unspecified (principal); N30.00 Acute cystitis without hematuria; F10.120 Alcohol abuse with intoxication, uncomplicated; E78.5 Hyperlipidemia, unspecified; I11.0 Hypertensive heart disease with heart failure; I25.2 Old myocardial infarction; G40.909 Epilepsy, unspecified, not intractable, without status epilepticus; I50.9 Heart failure, unspecified; J44.9 Chronic obstructive pulmonary disease, unspecified; Z85.05 Personal history of malignant neoplasm of liver
CPT/HCPCS: 36415; 70450; 71045; 80053; 80307; 81001; 83690; 84484; 85025; 87077; 87086; 87186; 93005; 99284

== ENCOUNTER 2018-09-25 19:25 | Emergency (ER) | payer MEDICARE, MEDICAID ==
[~2018-09-25] VITALS: Ht 165.1 cm; Wt 77.3 kg
--- NOTE | 2018-09-25 19:38 | NUR ---
PT BIB [facility] FROM HOME FOR C/O SOB, COUGH & RELATED CHEST PAIN, AND CONFUSION X2 DAYS. PT STATES SHE THINKS IT'S R/T TO A NEW MEDICATION THAT SHE STARTED. HX LUNG CA AND LIVER CA. R LUNG WAS REMOVED. PER EMS, PT WAS HERE LAST WEEK AND WAS TREATED FOR UTI WITH CEFTINIR. VS PER EMS: 103/72, HR 80s, 94% ON 4L NC (BASELINE 2L 24/7), RR 16. PT ARRIVES TO ED A&OX4, SIGNIFICANT OTHER AT BS. ERP AT BS IMMEDIATELY.
--- NOTE | 2018-09-25 19:41 | NUR ---
PT TEARFUL WHEN TALKING ABOUT HER RECENT CONFUSION.
--- NOTE | 2018-09-25 20:02 | NUR ---
POC RV'WD WITH PT, SHE VERBALIZES UNDERSTANDING. PT REQUESTS PAIN MEDICATION FOR CHEST PAIN, ERP NOTIFIED.
[2018-09-25 20:38] LABS: ALANINE AMINOTRANSFERASE 26 U/L (12-78); ALBUMIN 2.5 g/dL (3.4-5.0); ANION GAP 5 mmol/L (5-15); CALCIUM 8.4 mg/dL (8.5-10.1); CHLORIDE 103 mmol/L (98-107); INTERNATIONAL NORMALIZED RATIO 0.95 (0.93-1.1)
[2018-09-25 20:40] LABS: ALKALINE PHOSPHATASE 244 U/L (45-117); BILIRUBIN,TOTAL 0.2 mg/dL (0.2-1.0); TOTAL PROTEIN 6.9 g/dL (6.4-8.2)
[2018-09-25 20:43] LABS: MEAN CORPUSCULAR HEMOGLOBIN 25.7 pg (27.0-34.8); MEAN CORPUSCULAR HGB CONC 31.1 g/dL (32.4-35.8); MEAN CORPUSCULAR VOLUME 82.8 fL (80-100); MEAN PLATELET VOLUME 6.6 fL (7.4-10.4); PLATELET COUNT 696 x10^3/uL (130-400); RED BLOOD COUNT 3.98 x10^6/uL (3.82-5.3); RED CELL DISTRIBUTION WIDTH 22.1 % (9.6-15.2)
[2018-09-25 20:54] LABS: BASOPHILS # (AUTO) 0.01 x10^3/uL (0-0.1); BASOPHILS % (AUTO) 0 % (0-1); EOSINOPHILS # (AUTO) 0.04 x10^3/uL (0-0.4); EOSINOPHILS % (AUTO) 1 % (1-7); LYMPHOCYTES # (AUTO) 1.22 x10^3/uL (1-3.4); LYMPHOCYTES % (AUTO) 22 % (22-44); MD SCAN; MONOCYTES # (AUTO) 0.24 x10^3/uL (0.2-0.8); MONOCYTES % (AUTO) 4 % (2-9); NEUTROPHILS # (AUTO) 4.11 x10^3/uL (1.8-6.8); NEUTROPHILS % (AUTO) 73 % (42-75)
[2018-09-25 21:56] VITALS: BP 97/63
--- NOTE | 2018-09-25 21:57 | NUR ---
D/C INSTRUCTIONS & F/U APPT RV'WD WITH PT AND SPOUSE, THEY VERBALIZE UNDERSTANDING. PT HAS PORTABLE O2 TANK FROM HOME. PT ASSISTED OUT OF ED VIA WC WITH SPOUSE, THEY WILL TAKE CAB HOME.
== END 2018-09-25 22:03 | disposition home or self-care (01) ==
LOC: ED 20:40
DX: R05 Cough (principal); R06.02 Shortness of breath; I25.2 Old myocardial infarction; G40.909 Epilepsy, unspecified, not intractable, without status epilepticus; I11.0 Hypertensive heart disease with heart failure; I50.9 Heart failure, unspecified; J44.9 Chronic obstructive pulmonary disease, unspecified
CPT/HCPCS: 36415; 71045; 80053; 82140; 85025; 85610; 85730; 93005; 99284

== ENCOUNTER 2018-10-03 11:49 | Emergency (ER) | payer MEDICARE, MEDICAID ==
[2018-10-03 13:12] LABS: MEAN CORPUSCULAR HGB CONC 31.3 g/dL (32.4-35.8); PLATELET COUNT 441 x10^3/uL (130-400); RED BLOOD COUNT 3.93 x10^6/uL (3.82-5.3); RED CELL DISTRIBUTION WIDTH 21.3 % (9.6-15.2)
[2018-10-03 13:23] LABS: ALANINE AMINOTRANSFERASE 33 U/L (12-78); ALBUMIN 2.4 g/dL (3.4-5.0); ANION GAP 6 mmol/L (5-15); CALCIUM 8.5 mg/dL (8.5-10.1); CHLORIDE 100 mmol/L (98-107); CREATININE 0.66 mg/dL (0.55-1.02)
[2018-10-03 13:25] LABS: BASOPHILS # (AUTO) 0.09 x10^3/uL (0-0.1); BASOPHILS % (AUTO) 1 % (0-1); EOSINOPHILS # (AUTO) 0.04 x10^3/uL (0-0.4); EOSINOPHILS % (AUTO) 1 % (1-7); LYMPHOCYTES # (AUTO) 0.52 x10^3/uL (1-3.4); LYMPHOCYTES % (AUTO) 6 % (22-44); MD SCAN; MONOCYTES # (AUTO) 0.42 x10^3/uL (0.2-0.8); MONOCYTES % (AUTO) 5 % (2-9); NEUTROPHILS # (AUTO) 7.59 x10^3/uL (1.8-6.8); NEUTROPHILS % (AUTO) 88 % (42-75)
[2018-10-03 13:27] LABS: ALKALINE PHOSPHATASE 419 U/L (45-117); BILIRUBIN,TOTAL 0.4 mg/dL (0.2-1.0); TOTAL PROTEIN 6.7 g/dL (6.4-8.2)
--- NOTE | 2018-10-03 15:48 | NUR ---
TO ROOM FROM LOBBY. NAD.
--- NOTE | 2018-10-03 16:01 | NUR ---
REPORT FROM TRICE DEL ROSARIO RN. ASSUMED CARE OF PATIENT AT THIS TIME. PATIENT PRESENTS TO ED TODAY FOR N/V, RLQ PAIN, LAST BM 2 DAYS AGO. FAMILY AT BEDSIDE. PATIENT ON 2L HOME O2, 99% 2L NC AT THIS TIME, NADN. CALL LIGHT WITHIN REACH.
[2018-10-03] MEDS ORDERED: OXYcodone IR 5MG TABLET PO ONE (16:30)
[2018-10-03] MEDS ORDERED: PROMETHAZINE 25 MG/ML, 1ML IM ONE (16:30)
[2018-10-03] MEDS ORDERED: OXYcodone IR 5MG TABLET ONE (16:32)
[2018-10-03] MEDS ORDERED: PROMETHAZINE 25 MG/ML, 1ML ONE (16:32)
--- NOTE | 2018-10-03 16:36 | NUR ---
UA CANCELLED PER ERP. MEDICATIONS ADMINISTERED PER ORDER, PATIENT TO BE DC'D.
[2018-10-03 16:37] VITALS: BP 118/90
--- NOTE | 2018-10-03 17:09 | NUR ---
Patient/Caregiver given discharge instructions and they have confirmed that they understand the instructions. Patient ambulatory with steady gait.
== END 2018-10-03 17:10 | disposition home or self-care (01) ==
LOC: ED 17:01
DX: R11.2 Nausea with vomiting, unspecified (principal); J44.9 Chronic obstructive pulmonary disease, unspecified; I11.0 Hypertensive heart disease with heart failure; I50.9 Heart failure, unspecified; E78.5 Hyperlipidemia, unspecified; I25.2 Old myocardial infarction; G40.909 Epilepsy, unspecified, not intractable, without status epilepticus; Z85.118 Personal history of other malignant neoplasm of bronchus and lung; Z85.05 Personal history of malignant neoplasm of liver; Z72.9 Problem related to lifestyle, unspecified
CPT/HCPCS: 36415; 74021; 80053; 83690; 84703; 85025; 93005; 96372; 99284; J2550

== ENCOUNTER 2019-04-26 19:45 | Emergency (ER) | payer MEDICARE, MEDICAID ==
[~2019-04-26] VITALS: Ht 167.6 cm; Wt 92.0 kg
[2019-04-26 20:04] VITALS: BP 164/98
[2019-04-26] MEDS ORDERED: MAALOX/HYOSCYAMINE/LIDOCAINE 45 ML BTL PO ONE (20:30)
--- NOTE | 2019-04-26 20:35 | NUR ---
FIRST CONTACT WITH PT. PT C/O DIARRHEA X 1 MONTH. WAS TESTED TODAY AT DR. SHAFER AND WAS TOLD TO COME TO ER DUE + C DIFF. PATIENT ON 5 LITERS OF OXYGEN 14/11. PT'S AOX4. RESPS EVEN AND UNLABORED.
[2019-04-26] MEDS ORDERED: MAALOX/HYOSCYAMINE/LIDOCAINE 45 ML BTL ONE (20:38)
--- NOTE | 2019-04-26 20:39 | NUR ---
MED ORDERED FROM PHARMACY AT THIS TIME.
[2019-04-26] MEDS ORDERED: VANCOMYCIN 50 MG/ML ORAL SUSP PO ONE (21:00)
--- NOTE | 2019-04-26 21:16 | NUR ---
PT MEDICATED PER EMAR. PT TOLERATED WELL.
--- NOTE | 2019-04-26 21:33 | NUR ---
Patient given discharge instructions and they have confirmed that they understand the instructions. Patient ambulatory with steady gait.
== END 2019-04-26 21:34 | disposition home or self-care (01) ==
LOC: ED 21:15
DX: R19.7 Diarrhea, unspecified (principal); I25.2 Old myocardial infarction; I11.0 Hypertensive heart disease with heart failure; I50.9 Heart failure, unspecified; J44.9 Chronic obstructive pulmonary disease, unspecified; Z90.5 Acquired absence of kidney
CPT/HCPCS: 99283; J3370

== ENCOUNTER → 2019-04-26 | Outpatient (CLI) | payer MEDICARE, MEDICAID ==
[~2019-04-26] MED LIST changes: +ACET600C6 PO; +AZIT500T10 PO; +BUDE0.5A INH; +DOXY100C2 PO; +GUAI600T31 PO; +HYDR-3343 PO; +IPRA3AMP30 NPPB; +LISI-170 PO; -MAGN400T7 PO; +MAGN400T9 PO; +MAGN64TA7 PO; -OMEP10CA4 PO; +OMEP10CA5 PO; +OXYC15TA PO; +POLY17PO5 PO; +PRED5TAB PO
[2019-04-26 10:58] LABS: O2 FLOW 5 L/min
[2019-04-26 10:59] LABS: BASOPHILS # (AUTO) 0.03 x10^3/uL (0-0.1); BASOPHILS % (AUTO) 0 % (0-1); EOSINOPHILS # (AUTO) 0.08 x10^3/uL (0-0.4); EOSINOPHILS % (AUTO) 1 % (1-7); LYMPHOCYTES # (AUTO) 0.86 x10^3/uL (1-3.4); LYMPHOCYTES % (AUTO) 8 % (22-44); MD NO; MEAN CORPUSCULAR HEMOGLOBIN 29.8 pg (27.0-34.8); MEAN CORPUSCULAR HGB CONC 32.8 g/dL (32.4-35.8); MEAN PLATELET VOLUME 7.1 fL (7.4-10.4); MONOCYTES # (AUTO) 0.59 x10^3/uL (0.2-0.8); MONOCYTES % (AUTO) 5 % (2-9); NEUTROPHILS # (AUTO) 9.63 x10^3/uL (1.8-6.8); NEUTROPHILS % (AUTO) 86 % (42-75); PLATELET COUNT 406 x10^3/uL (130-400); RED BLOOD COUNT 4.01 x10^6/uL (3.82-5.3); RED CELL DISTRIBUTION WIDTH 19.9 % (9.6-15.2)
[2019-04-26 12:57] LABS: CLOSTRIDIUM DIFFICILE TOXIN NEGATIVE (Negative)
[2019-04-26 12:58] LABS: CLOSTRIDIUM DIFFICILE ANTIGEN POSITIVE
[2019-04-26 13:07] LABS: CRYPTOSPORIDIUM ANTIGEN Negative (Negative)
== END | disposition home or self-care (01) ==
LOC: LAB 10:32
PROVIDERS: ATTEND Internal Medicine
DX: G93.41 Metabolic encephalopathy (principal); A04.72 Enterocolitis due to Clostridium difficile, not specified as recurrent; J96.21 Acute and chronic respiratory failure with hypoxia
CPT/HCPCS: 36600; 82803; 85025; 87046; 87324; 87328; 87329; 87427; 89055

== ENCOUNTER 2019-08-18 18:30 | Inpatient (IN) | payer MEDICARE, MEDICAID ==
[~2019-08-18] VITALS: Ht 165.1 cm; Wt 88.2 kg
[~2019-08-18 18:30] MED LIST changes: +CEFD300C37 PO; +DOXY100T PO; +LINE600T15 PO; +METH500T7 PO; +MORP-52 PO; +ONDA4TAB13 PO; +OXYC18CA PO; +OXYC5TAB2 PO
--- NOTE | 2019-08-18 18:44 | NUR ---
Pt's husbands name is Thanh. Thanh would like to be called with updates. His cell number is [phone]. His home phone number is [phone]
--- NOTE | 2019-08-18 19:00 | NUR ---
RECEIVED REPORT FROM PERLA AMARAL. ERP AT BEDSIDE PLACING CENTRAL LINE.
[2019-08-18] MEDS: MIDAZOLAM HCL 50 MG in SODIUM CHLORIDE 0.9% 40 ML IV PRN ×2 (19:20→20:11)
[2019-08-18] MEDS ORDERED: DOPAMINE/D5W PMX 250 ML IV PRN (19:27)
[2019-08-18] MEDS ORDERED: MIDAZOLAM 1 MG/ML, 2ML IVPush ONE (19:30)
[2019-08-18 19:39] LABS: BASOPHILS % (AUTO) 0 % (0-1); EOSINOPHILS % (AUTO) 0 % (1-7); LYMPHOCYTES # (AUTO) 0.52 x10^3/uL (1-3.4); LYMPHOCYTES % (AUTO) 5 % (22-44); MD NO; MEAN CORPUSCULAR HEMOGLOBIN 26.6 pg (27.0-34.8); MEAN CORPUSCULAR VOLUME 85.7 fL (80-100); MEAN PLATELET VOLUME 8.3 fL (7.4-10.4); MONOCYTES # (AUTO) 0.89 x10^3/uL (0.2-0.8); MONOCYTES % (AUTO) 9 % (2-9); NEUTROPHILS # (AUTO) 8.88 x10^3/uL (1.8-6.8); NEUTROPHILS % (AUTO) 86 % (42-75); PLATELET COUNT 320 x10^3/uL (130-400); RED BLOOD COUNT 4.38 x10^6/uL (3.82-5.3); RED CELL DISTRIBUTION WIDTH 18.5 % (9.6-15.2)
[2019-08-18] MEDS ORDERED: NOREPINEPHRINE 8 MG in SODIUM CHLORIDE 0.9% 242 ML IV PRN (19:44)
[2019-08-18 19:51] LABS: ALANINE AMINOTRANSFERASE 34 U/L (12-78); ALBUMIN 2.7 g/dL (3.4-5.0); ANION GAP 9 mmol/L (5-15); CALCIUM 8.7 mg/dL (8.5-10.1); CHLORIDE 101 mmol/L (98-107); CREATININE 2.89 mg/dL (0.55-1.02)
[2019-08-18 19:56] LABS: ALKALINE PHOSPHATASE 134 U/L (45-117); BILIRUBIN,TOTAL 0.3 mg/dL (0.2-1.0); SALICYLATE LEVEL < 1.7 mg/dL (2.8-20.0); TOTAL PROTEIN 6.6 g/dL (6.4-8.2); TROPONIN I 0.056 ng/mL (0.000-0.045)
[2019-08-18] MEDS ORDERED: VANCOMYCIN PER PHARMACY MC ONE (20:00)
[2019-08-18] MEDS ORDERED: VANCOMYCIN 2,200 MG in SODIUM CHLORIDE 0.9% 500 ML IV ONE (20:00)
[2019-08-18] MEDS ORDERED: SODIUM CHLORIDE 0.9% 1,000ML IVBOLUS ONE (20:00)
[2019-08-18] MEDS ORDERED: LACTULOSE 20 GM/30 ML UDC NG PRN (20:00)
[2019-08-18] MEDS ORDERED: BISACODYL 10 MG SUPP PR PRN (20:00)
[2019-08-18] MEDS ORDERED: PHARMACY MAY ADJ FOR RENAL FX MC SCH (20:00)
[2019-08-18] MEDS ORDERED: ONDANSETRON 2MG/ML, 2ML IV PRN (20:00)
[2019-08-18] MEDS ORDERED: LIDOCAINE-MPF 1%, 2ML ENDO PRN (20:00)
[2019-08-18] MEDS ORDERED: SENNA 176 MG/5 ML ORAL SOL NG PRN (20:00)
[2019-08-18] MEDS ORDERED: PIPERACILLIN/TAZO/PMX 3.375GM 50 ML IVPB ONE (20:00)
[2019-08-18] MEDS ORDERED: SENNA/DOCUSATE TABLET NG PRN (20:00)
[2019-08-18] MEDS ORDERED: PIPERACILLIN/TAZO/PMX 3.375GM 50 ML ONE (20:03)
[2019-08-18] MEDS ORDERED: PHARMACY MAY ADJ FOR RENAL FX MC PRN (20:30)
[2019-08-18] MEDS ORDERED: ACETAMINOPHEN 325 MG TABLET PO PRN (20:30)
[2019-08-18] MEDS ORDERED: VANCOMYCIN PER PHARMACY MC PRN (20:30)
[2019-08-18] MEDS: PIPERACILLIN/TAZO/PMX 3.375GM 50 ML IVPB SCH (20:46)
[2019-08-18 20:54] VITALS: BP 147/83
[2019-08-18] MEDS ORDERED: LACTULOSE 10 GM/15 ML UDC PO SCH (21:00)
--- NOTE | 2019-08-18 21:00 | NUR ---
PATIENT TO CT SCAN. REPORT TO PERLA WHATLEY.
[2019-08-18] MEDS: SODIUM CHLORIDE 0.9% 1,000 ML IV SCH (21:37)
[2019-08-18] MEDS ORDERED: PHARMACOKINETIC MONITORING MC PRN (22:00)
[2019-08-18] MEDS ORDERED: PHARMACOKINETIC CONSULTATION MC ONE (22:00)
[2019-08-18] MEDS: ALBUTEROL/IPRATROPIUM 2.5MG/0.5MG, 3 ML NPPB SCH (22:45)
--- NOTE | 2019-08-18 22:53 | NUR ---
LATE NOTE: THIS TECH ASSISTED RN W/ CARE & TRANSPORT OF PT. TECH WAS IN ROOM FOR 2 HOURS IN PAPR
[2019-08-18] MEDS: LEVETIRACETAM 100 MG/ML ORAL SOL PO SCH (23:00)
[2019-08-18] MEDS: LACTULOSE 20 GM/30 ML UDC PO SCH (23:00)
[2019-08-18] MEDS: ASCORBIC ACID 500 MG TABLET PO SCH (23:00)
[2019-08-18] MEDS: HEPARIN 5,000 UNITS/ML, 1ML SQ SCH (23:00)
[2019-08-19 00:42] LABS: ANION GAP 7 mmol/L (5-15); CALCIUM 8.4 mg/dL (8.5-10.1); CHLORIDE 104 mmol/L (98-107); CREATININE 2.22 mg/dL (0.55-1.02)
[2019-08-19 00:46] LABS: TROPONIN I 0.174 ng/mL (0.000-0.045)
[2019-08-19] MEDS: PIPERACILLIN/TAZO/PMX 3.375GM 50 ML IVPB SCH ×4 (02:51→21:20)
[2019-08-19] MEDS: MIDAZOLAM HCL 50 MG in SODIUM CHLORIDE 0.9% 40 ML IV PRN ×2 (05:16→23:12)
[2019-08-19 05:40] LABS: BASOPHILS # (AUTO) 0.02 x10^3/uL (0-0.1); BASOPHILS % (AUTO) 0 % (0-1); EOSINOPHILS # (AUTO) 0.01 x10^3/uL (0-0.4); EOSINOPHILS % (AUTO) 0 % (1-7); HCT (SEDRATE) 34.5 % (34.6-47.8); LYMPHOCYTES # (AUTO) 0.86 x10^3/uL (1-3.4); LYMPHOCYTES % (AUTO) 9 % (22-44); MD NO; MEAN CORPUSCULAR HEMOGLOBIN 26.4 pg (27.0-34.8); MEAN CORPUSCULAR HGB CONC 31.6 g/dL (32.4-35.8); MEAN CORPUSCULAR VOLUME 83.7 fL (80-100); MEAN PLATELET VOLUME 8.2 fL (7.4-10.4); MONOCYTES # (AUTO) 1.11 x10^3/uL (0.2-0.8); MONOCYTES % (AUTO) 11 % (2-9); NEUTROPHILS # (AUTO) 8.07 x10^3/uL (1.8-6.8); NEUTROPHILS % (AUTO) 80 % (42-75); PLATELET COUNT 267 x10^3/uL (130-400); RED BLOOD COUNT 4.13 x10^6/uL (3.82-5.3); RED CELL DISTRIBUTION WIDTH 18.7 % (9.6-15.2)
[2019-08-19 05:52] LABS: D-DIMER 1.1 ug/mlFEU (0.00-0.52); INTERNATIONAL NORMALIZED RATIO 1.02 (0.93-1.1); PROTHROMBIN TIME 10.8 Seconds (9.6-11.5)
[2019-08-19 05:53] LABS: ANION GAP 6 mmol/L (5-15); CALCIUM 8.4 mg/dL (8.5-10.1); CHLORIDE 107 mmol/L (98-107); CREATININE 1.74 mg/dL (0.55-1.02)
[2019-08-19 05:57] LABS: BILIRUBIN,TOTAL 0.4 mg/dL (0.2-1.0); TROPONIN I 0.215 ng/mL (0.000-0.045)
[2019-08-19] MEDS: ALBUTEROL/IPRATROPIUM 2.5MG/0.5MG, 3 ML NPPB SCH ×4 (07:50→19:32)
[2019-08-19] MEDS: FENTANYL PF 100 MCG/2ML IVPush PRN (08:08)
[2019-08-19] MEDS: SODIUM CHLORIDE 0.9% 1,000 ML IV SCH ×2 (08:09→21:20)
[2019-08-19] MEDS ORDERED: PANTOPRAZOLE 40 MG IV IVPush SCH (09:00)
[2019-08-19] MEDS: PANTOPRAZOLE 40 MG IV IVPush SCH (10:22)
[2019-08-19] MEDS: LACTULOSE 20 GM/30 ML UDC PO SCH (10:24)
[2019-08-19] MEDS: LEVETIRACETAM 100 MG/ML ORAL SOL PO SCH ×2 (10:24→21:20)
[2019-08-19] MEDS: ASCORBIC ACID 500 MG TABLET PO SCH ×2 (10:25→21:20)
[2019-08-19] MEDS: ZINC SULFATE 220 MG CAPSULE PO SCH (10:25)
[2019-08-19] MEDS: OXYcodone IR 5MG TABLET PO SCH ×3 (12:04→21:20)
[2019-08-19] MEDS: HEPARIN 5,000 UNITS/ML, 1ML SQ SCH ×3 (12:04→23:12)
--- NOTE | 2019-08-19 13:50 | NUR ---
TF GOAL: VITAL AF 1.2 @ 60ML/HR (55ml/hr if propofol begins)
[2019-08-19 14:13] LABS: TROPONIN I 0.149 ng/mL (0.000-0.045)
[2019-08-19] MEDS ORDERED: VANCOMYCIN 1,700 MG in SODIUM CHLORIDE 0.9% 250 ML IV ONE (17:00)
[2019-08-20] MEDS: FENTANYL PF 100 MCG/2ML IVPush PRN ×3 (01:47→05:20)
[2019-08-20] MEDS: PIPERACILLIN/TAZO/PMX 3.375GM 50 ML IVPB SCH ×4 (04:35→21:09)
[2019-08-20 05:07] LABS: ALANINE AMINOTRANSFERASE 58 U/L (12-78); ANION GAP 5 mmol/L (5-15); CALCIUM 8.5 mg/dL (8.5-10.1); CHLORIDE 106 mmol/L (98-107); CREATININE 0.73 mg/dL (0.55-1.02)
[2019-08-20 05:08] LABS: D-DIMER 1.44 ug/mlFEU (0.00-0.52); INTERNATIONAL NORMALIZED RATIO 1.02 (0.93-1.1); PROTHROMBIN TIME 10.8 Seconds (9.6-11.5)
[2019-08-20 05:12] LABS: BASOPHILS # (AUTO) 0.01 x10^3/uL (0-0.1); BASOPHILS % (AUTO) 0 % (0-1); EOSINOPHILS # (AUTO) 0.11 x10^3/uL (0-0.4); EOSINOPHILS % (AUTO) 1 % (1-7); LYMPHOCYTES # (AUTO) 0.67 x10^3/uL (1-3.4); LYMPHOCYTES % (AUTO) 7 % (22-44); MD NO; MEAN CORPUSCULAR HEMOGLOBIN 26.7 pg (27.0-34.8); MEAN CORPUSCULAR HGB CONC 32.3 g/dL (32.4-35.8); MEAN CORPUSCULAR VOLUME 82.9 fL (80-100); MEAN PLATELET VOLUME 8.7 fL (7.4-10.4); MONOCYTES # (AUTO) 0.92 x10^3/uL (0.2-0.8); MONOCYTES % (AUTO) 10 % (2-9); NEUTROPHILS % (AUTO) 81 % (42-75); PLATELET COUNT 229 x10^3/uL (130-400); RED BLOOD COUNT 3.71 x10^6/uL (3.82-5.3); RED CELL DISTRIBUTION WIDTH 19.5 % (9.6-15.2)
[2019-08-20 05:14] LABS: ALKALINE PHOSPHATASE 120 U/L (45-117); BILIRUBIN,TOTAL 0.3 mg/dL (0.2-1.0); TOTAL PROTEIN 5.5 g/dL (6.4-8.2)
[2019-08-20 06:18] LABS: HCT (SEDRATE) 30.7 % (34.6-47.8)
[2019-08-20] MEDS ORDERED: MAGNESIUM SULFATE PMX 4GM/100M 100 ML IV ONE (07:00)
[2019-08-20] MEDS: ALBUTEROL/IPRATROPIUM 2.5MG/0.5MG, 3 ML NPPB SCH ×4 (07:00→19:15)
[2019-08-20] MEDS ORDERED: PROPOFOL 100 ML IV ONE (09:47)
[2019-08-20] MEDS: PROPOFOL 100 ML IV PRN ×5 (10:24→22:55)
[2019-08-20] MEDS: OXYcodone IR 5MG TABLET PO SCH ×3 (11:06→21:10)
[2019-08-20] MEDS: ASCORBIC ACID 500 MG TABLET PO SCH ×2 (11:07→21:10)
[2019-08-20] MEDS: ZINC SULFATE 220 MG CAPSULE PO SCH (11:07)
[2019-08-20] MEDS: HEPARIN 5,000 UNITS/ML, 1ML SQ SCH ×2 (11:07→16:59)
[2019-08-20] MEDS: PANTOPRAZOLE 40 MG IV IVPush SCH (11:08)
[2019-08-20] MEDS: MULTIVITAMINS/MINERALS TABLET PO SCH ×2 (11:34→21:10)
[2019-08-20] MEDS: LEVETIRACETAM 100 MG/ML ORAL SOL PO SCH ×2 (11:34→21:09)
[2019-08-21] MEDS: HEPARIN 5,000 UNITS/ML, 1ML SQ SCH ×4 (00:58→23:58)
[2019-08-21] MEDS: PIPERACILLIN/TAZO/PMX 3.375GM 50 ML IVPB SCH ×4 (02:44→23:58)
[2019-08-21] MEDS: PROPOFOL 100 ML IV PRN ×2 (02:44→04:35)
[2019-08-21] MEDS: ALBUTEROL/IPRATROPIUM 2.5MG/0.5MG, 3 ML NPPB SCH ×3 (03:00→11:00)
[2019-08-21] MEDS: OXYcodone IR 5MG TABLET PO SCH ×3 (04:34→20:34)
[2019-08-21 05:12] LABS: BASOPHILS # (AUTO) 0.01 x10^3/uL (0-0.1); BASOPHILS % (AUTO) 0 % (0-1); EOSINOPHILS # (AUTO) 0.18 x10^3/uL (0-0.4); EOSINOPHILS % (AUTO) 3 % (1-7); LYMPHOCYTES # (AUTO) 0.71 x10^3/uL (1-3.4); LYMPHOCYTES % (AUTO) 11 % (22-44); MD NO; MEAN CORPUSCULAR HEMOGLOBIN 27.1 pg (27.0-34.8); MEAN CORPUSCULAR HGB CONC 32.7 g/dL (32.4-35.8); MEAN CORPUSCULAR VOLUME 82.8 fL (80-100); MEAN PLATELET VOLUME 8.4 fL (7.4-10.4); MONOCYTES # (AUTO) 0.61 x10^3/uL (0.2-0.8); MONOCYTES % (AUTO) 9 % (2-9); NEUTROPHILS # (AUTO) 5.11 x10^3/uL (1.8-6.8); NEUTROPHILS % (AUTO) 77 % (42-75); PLATELET COUNT 221 x10^3/uL (130-400); RED BLOOD COUNT 3.43 x10^6/uL (3.82-5.3); RED CELL DISTRIBUTION WIDTH 19.5 % (9.6-15.2)
[2019-08-21 05:18] LABS: ANION GAP 5 mmol/L (5-15); CALCIUM 8.6 mg/dL (8.5-10.1); CHLORIDE 108 mmol/L (98-107)
[2019-08-21 05:27] LABS: ALANINE AMINOTRANSFERASE 52 U/L (12-78); ALKALINE PHOSPHATASE 110 U/L (45-117); BILIRUBIN,TOTAL 0.2 mg/dL (0.2-1.0); CREATININE 0.53 mg/dL (0.55-1.02); TOTAL PROTEIN 5.5 g/dL (6.4-8.2); TRIGLYCERIDES 113 mg/dL (50-200)
[2019-08-21 05:40] LABS: HCT (SEDRATE) 28.4 % (34.6-47.8)
[2019-08-21 05:46] LABS: D-DIMER 0.99 ug/mlFEU (0.00-0.52); INTERNATIONAL NORMALIZED RATIO 0.94 (0.93-1.1)
[2019-08-21] MEDS ORDERED: POTASSIUM CHLORIDE 10% 40 MEQ/30 ML UDC PO ONE (07:30)
[2019-08-21] MEDS: PANTOPRAZOLE 40 MG IV IVPush SCH (08:56)
[2019-08-21] MEDS: ZINC SULFATE 220 MG CAPSULE PO SCH (08:56)
[2019-08-21] MEDS: LEVETIRACETAM 100 MG/ML ORAL SOL PO SCH ×2 (08:57→20:33)
[2019-08-21] MEDS: MULTIVITAMINS/MINERALS TABLET PO SCH ×2 (08:57→20:33)
[2019-08-21] MEDS: ASCORBIC ACID 500 MG TABLET PO SCH ×2 (08:57→20:33)
[2019-08-21] MEDS ORDERED: FUROSEMIDE 40 MG/4 ML IV ONE (10:00)
[2019-08-21] MEDS ORDERED: ERGOCALCIFEROL 50,000 UNIT CAPSULE PO SCH (12:00)
[2019-08-21] MEDS ORDERED: hydrALAzine 20 MG/ML, 1ML IVPush PRN (13:30)
[2019-08-21] MEDS ORDERED: ENALAPRILAT 1.25 MG/ML, 2ML IVPush PRN (13:30)
[2019-08-21] MEDS: ZIPRASIDONE 20 MG INJ IM PRN ×2 (14:10→17:22)
[2019-08-21] MEDS ORDERED: ALBUTEROL/IPRATROPIUM 2.5MG/0.5MG, 3 ML ONE (14:17)
[2019-08-21] MEDS ORDERED: ALBUTEROL/IPRATROPIUM 2.5MG/0.5MG, 3 ML NPPB SCH (20:00)
[2019-08-21] MEDS ORDERED: BUDESONIDE 0.5 MG/2 ML INHA INH SCH (21:00)
[2019-08-22] MEDS: PIPERACILLIN/TAZO/PMX 3.375GM 50 ML IVPB SCH ×3 (05:25→17:19)
[2019-08-22] MEDS: OXYcodone IR 5MG TABLET PO SCH ×3 (05:25→20:18)
[2019-08-22 06:15] LABS: BASOPHILS # (AUTO) 0.02 x10^3/uL (0-0.1); BASOPHILS % (AUTO) 0 % (0-1); EOSINOPHILS # (AUTO) 0.12 x10^3/uL (0-0.4); EOSINOPHILS % (AUTO) 2 % (1-7); LYMPHOCYTES # (AUTO) 0.79 x10^3/uL (1-3.4); LYMPHOCYTES % (AUTO) 14 % (22-44); MD NO; MEAN CORPUSCULAR HEMOGLOBIN 26.7 pg (27.0-34.8); MEAN CORPUSCULAR HGB CONC 32.4 g/dL (32.4-35.8); MEAN CORPUSCULAR VOLUME 82.3 fL (80-100); MEAN PLATELET VOLUME 8.5 fL (7.4-10.4); MONOCYTES # (AUTO) 0.42 x10^3/uL (0.2-0.8); MONOCYTES % (AUTO) 8 % (2-9); NEUTROPHILS # (AUTO) 4.29 x10^3/uL (1.8-6.8); NEUTROPHILS % (AUTO) 76 % (42-75); PLATELET COUNT 284 x10^3/uL (130-400); RED BLOOD COUNT 4.03 x10^6/uL (3.82-5.3); RED CELL DISTRIBUTION WIDTH 19.9 % (9.6-15.2)
[2019-08-22 06:16] LABS: ALANINE AMINOTRANSFERASE 54 U/L (12-78); ALBUMIN 2.4 g/dL (3.4-5.0); ANION GAP 6 mmol/L (5-15); CHLORIDE 105 mmol/L (98-107)
[2019-08-22 06:28] LABS: ALKALINE PHOSPHATASE 118 U/L (45-117); BILIRUBIN,TOTAL 0.3 mg/dL (0.2-1.0); TOTAL PROTEIN 6.6 g/dL (6.4-8.2)
[2019-08-22 06:33] LABS: D-DIMER 1.75 ug/mlFEU (0.00-0.52); HCT (SEDRATE) 33.2 % (34.6-47.8); INTERNATIONAL NORMALIZED RATIO 0.93 (0.93-1.1); PROTHROMBIN TIME 9.9 Seconds (9.6-11.5)
[2019-08-22] MEDS: FLUTICASONE/VILANTEROL 100-25MCG/INH INH SCH (09:00)
[2019-08-22] MEDS: PANTOPRAZOLE 40 MG IV IVPush SCH (09:44)
[2019-08-22] MEDS: POTASSIUM CHLORIDE 10% 40 MEQ/30 ML UDC PO SCH ×2 (09:44→20:18)
[2019-08-22] MEDS: HEPARIN 5,000 UNITS/ML, 1ML SQ SCH ×2 (09:45→15:52)
[2019-08-22] MEDS: MULTIVITAMINS/MINERALS TABLET PO SCH ×2 (09:45→20:18)
[2019-08-22] MEDS: ZINC SULFATE 220 MG CAPSULE PO SCH (09:45)
[2019-08-22] MEDS: LEVETIRACETAM 100 MG/ML ORAL SOL PO SCH ×2 (09:45→20:18)
[2019-08-22] MEDS: CYANOCOBALAMIN 1,000 MCG TABLET PO SCH (09:45)
[2019-08-22] MEDS: ASCORBIC ACID 500 MG TABLET PO SCH ×2 (09:45→20:18)
[2019-08-22] MEDS ORDERED: FUROSEMIDE 40 MG/4 ML IV ONE (10:00)
[2019-08-22] MEDS: ALBUTEROL-IPRATROPIUM MDI INH INH SCH ×3 (11:00→20:18)
[2019-08-22] MEDS ORDERED: OXYcodone 5 MG/5 ML ORAL.SOL UDC ONE (11:57)
[2019-08-22] MEDS: POTASSIUM CHLORIDE 20 MEQ TAB.ER.PRT PO SCH (17:19)
[2019-08-23] MEDS: PIPERACILLIN/TAZO/PMX 3.375GM 50 ML IVPB SCH ×3 (00:24→11:50)
[2019-08-23] MEDS: HEPARIN 5,000 UNITS/ML, 1ML SQ SCH ×2 (00:24→09:46)
[2019-08-23 04:17] LABS: BASOPHILS # (AUTO) 0.04 x10^3/uL (0-0.1); BASOPHILS % (AUTO) 1 % (0-1); EOSINOPHILS # (AUTO) 0.07 x10^3/uL (0-0.4); EOSINOPHILS % (AUTO) 1 % (1-7); LYMPHOCYTES % (AUTO) 16 % (22-44); MD NO; MEAN CORPUSCULAR HEMOGLOBIN 26.7 pg (27.0-34.8); MEAN CORPUSCULAR HGB CONC 32.4 g/dL (32.4-35.8); MEAN CORPUSCULAR VOLUME 82.4 fL (80-100); MEAN PLATELET VOLUME 8.1 fL (7.4-10.4); MONOCYTES # (AUTO) 0.59 x10^3/uL (0.2-0.8); MONOCYTES % (AUTO) 10 % (2-9); NEUTROPHILS # (AUTO) 4.49 x10^3/uL (1.8-6.8); NEUTROPHILS % (AUTO) 73 % (42-75); PLATELET COUNT 312 x10^3/uL (130-400); RED CELL DISTRIBUTION WIDTH 20.1 % (9.6-15.2)
[2019-08-23 04:18] LABS: HCT (SEDRATE) 34.6 % (34.6-47.8)
[2019-08-23 04:25] LABS: ALBUMIN 2.5 g/dL (3.4-5.0); ANION GAP 6 mmol/L (5-15); CALCIUM 9.1 mg/dL (8.5-10.1); CHLORIDE 105 mmol/L (98-107)
[2019-08-23 04:34] LABS: ALANINE AMINOTRANSFERASE 45 U/L (12-78); ALKALINE PHOSPHATASE 115 U/L (45-117); BILIRUBIN,TOTAL 0.3 mg/dL (0.2-1.0); CREATININE 0.66 mg/dL (0.55-1.02); TOTAL PROTEIN 6.5 g/dL (6.4-8.2)
[2019-08-23 04:35] LABS: D-DIMER 1.73 ug/mlFEU (0.00-0.52); INTERNATIONAL NORMALIZED RATIO 0.93 (0.93-1.1); PROTHROMBIN TIME 9.9 Seconds (9.6-11.5)
[2019-08-23] MEDS: ALBUTEROL-IPRATROPIUM MDI INH INH SCH ×2 (06:13→11:00)
[2019-08-23] MEDS: OXYcodone IR 5MG TABLET PO SCH ×2 (06:14→12:53)
[2019-08-23] MEDS: PANTOPRAZOLE 40 MG IV IVPush SCH (07:30)
[2019-08-23] MEDS ORDERED: DOXY100T PO (09:38)
[2019-08-23] MEDS ORDERED: CEFD300C37 PO (09:38)
[2019-08-23] MEDS: LEVETIRACETAM 100 MG/ML ORAL SOL PO SCH (09:45)
[2019-08-23] MEDS: MULTIVITAMINS/MINERALS TABLET PO SCH (09:45)
[2019-08-23] MEDS: CYANOCOBALAMIN 1,000 MCG TABLET PO SCH (09:46)
[2019-08-23] MEDS: POTASSIUM CHLORIDE 20 MEQ TAB.ER.PRT PO SCH (09:46)
[2019-08-23] MEDS: ASCORBIC ACID 500 MG TABLET PO SCH (09:46)
[2019-08-23] MEDS: ZINC SULFATE 220 MG CAPSULE PO SCH (09:46)
[2019-08-23] MEDS: FLUTICASONE/VILANTEROL 100-25MCG/INH INH SCH (09:47)
[2019-08-23] MEDS ORDERED: ERGO500017 PO (10:10)
== END 2019-08-23 13:45 | disposition home health service (06) | DRG 871 ==
LOC: ED 19:51 → EDIP 20:24 → CCU 21:17 → ICU 21:19
PROVIDERS: ATTEND Internal Medicine
PROC: 5A1945Z Respiratory Ventilation, 24-96 Consecutive Hours (ICD-10-PCS; principal; 2019-08-18)
PROC: 0BH17EZ Insertion of Endotracheal Airway into Trachea, Via Natural or Artificial Opening (ICD-10-PCS; 2019-08-18)
PROC: 02HV33Z Insertion of Infusion Device into Superior Vena Cava, Percutaneous Approach (ICD-10-PCS; 2019-08-18)
PROC: B548ZZA Ultrasonography of Superior Vena Cava, Guidance (ICD-10-PCS; 2019-08-18)
PROC: 5A09357 Assistance with Respiratory Ventilation, Less than 24 Consecutive Hours, Continuous Positive Airway Pressure (ICD-10-PCS; 2019-08-21)
DX: A41.9 Sepsis, unspecified organism (principal); R65.21 Severe sepsis with septic shock; R40.20 Unspecified coma; J96.22 Acute and chronic respiratory failure with hypercapnia; G93.41 Metabolic encephalopathy; J18.9 Pneumonia, unspecified organism; J96.21 Acute and chronic respiratory failure with hypoxia; N17.0 Acute kidney failure with tubular necrosis; I50.32 Chronic diastolic (congestive) heart failure; J44.0 Chronic obstructive pulmonary disease with (acute) lower respiratory infection; Q78.0 Osteogenesis imperfecta; Z99.11 Dependence on respirator [ventilator] status; B19.20 Unspecified viral hepatitis C without hepatic coma; D64.9 Anemia, unspecified; E55.9 Vitamin D deficiency, unspecified; E78.5 Hyperlipidemia, unspecified; E86.0 Dehydration; E87.5 Hyperkalemia; G40.909 Epilepsy, unspecified, not intractable, without status epilepticus; G89.29 Other chronic pain; I11.0 Hypertensive heart disease with heart failure; I25.2 Old myocardial infarction; M19.90 Unspecified osteoarthritis, unspecified site; Z85.05 Personal history of malignant neoplasm of liver; Z86.19 Personal history of other infectious and parasitic diseases; Z85.118 Personal history of other malignant neoplasm of bronchus and lung; Z87.11 Personal history of peptic ulcer disease; Z90.2 Acquired absence of lung [part of]; Z90.3 Acquired absence of stomach [part of]; Z90.5 Acquired absence of kidney; Z98.84 Bariatric surgery status; Z78.9 Other specified health status; Z20.828 Contact with and (suspected) exposure to other viral communicable diseases; Z79.891 Long term (current) use of opiate analgesic
CPT/HCPCS: 31500; 36415; 36600; 70450; 71045; 74018; 74177; 80048; 80053; 80164; 80202; 80307; 82140; 82247; 82306; 82533; 82607; 82728; 82803; 83605; 83615; 83735; 83880; 84478; 84484; 85025; 85379; 85384; 85610; 85651; 85730; 86140; 87040; 87070; 87081; 87205; 87635; 93005; 94002; 94003; 94150; 94640; 94660; 96365; 96366; 96375; G0378; J1265; J1644; J1940; J2250; J2543; J2704; J3010; J3370; J3486; J7626; C9113; J0360; J3475; J7030; J7040; J7050; U0001

== ENCOUNTER 2019-08-29 14:36 | Emergency (ER) | payer MEDICAID, MEDICARE ==
[~2019-08-29] VITALS: Ht 167.6 cm; Wt 84.1 kg
[~2019-08-29 14:36] MED LIST changes: +ERGO500017 PO
[2019-08-29 14:39] VITALS: BP 122/75
== END 2019-08-29 15:40 | disposition home or self-care (01) ==
LOC: ED 15:19
DX: J04.0 Acute laryngitis (principal); I11.0 Hypertensive heart disease with heart failure; I50.9 Heart failure, unspecified; J44.9 Chronic obstructive pulmonary disease, unspecified; I25.2 Old myocardial infarction; E78.5 Hyperlipidemia, unspecified; Z85.05 Personal history of malignant neoplasm of liver; Z85.118 Personal history of other malignant neoplasm of bronchus and lung; Z90.5 Acquired absence of kidney
CPT/HCPCS: 99281

== ENCOUNTER 2019-08-30 13:55 | Emergency (ER) | payer MEDICARE, MEDICAID ==
[~2019-08-30] VITALS: Ht 165.1 cm; Wt 70.0 kg
--- NOTE | 2019-08-30 13:55 | NUR ---
PATIENT ARRIVES FROM HOME WITH [facility]. PATIENT CALLED HE FOUND HER DOWN AT HOME UNRESPONSIVE. SHE WAS SEEN HERE YESTERDAY AND ACCORDING TO OTHER STAFF FAMILIAR WITH HER SHE LEFT AMA AFTER ARRIVING FOR SOB AND PNA. PATIENT IS RESPONDING BUT MINIMALLY AND SHE IS VERY LUCID IN BED. ON MONITOR AND OXYGEN IS 98% ON 3 LITERS. PATIENT WEARS OXYGEN AROUND THE CLOCK AND HAS HOME OXYGEN. MEDICS REPORT THAT PATIENT WAS GIVEN 0.4 NARCAN IN ROUTE AND THAT IT DID HELP PERK HER UP. SHE IS ORIENTED WHEN WOKEN UP WITH LIGHT STERNAL RUB. PATIENT VSS. Addendum: 08/30/19 at 1450 by RAINA PATIENT ARRIVES FROM HOME WITH [facility]. PATIENT CALLED HE FOUND HER DOWN AT HOME UNRESPONSIVE. SHE WAS SEEN HERE YESTERDAY AND ACCORDING TO OTHER STAFF FAMILIAR WITH HER SHE LEFT AMA AFTER ARRIVING FOR SOB AND PNA. PATIENT IS RESPONDING BUT MINIMALLY AND SHE IS VERY SLEEPY IN BED. ON MONITOR AND OXYGEN IS 98% ON 3 LITERS. PATIENT WEARS OXYGEN AROUND THE CLOCK AND HAS HOME OXYGEN. MEDICS REPORT THAT PATIENT WAS GIVEN 0.4 NARCAN IN ROUTE AND THAT IT DID HELP PERK HER UP. SHE IS ORIENTED WHEN WOKEN UP WITH LIGHT STERNAL RUB. PATIENT VSS
--- NOTE | 2019-08-30 14:08 | NUR ---
PATIENT IS NOW MORE AWAKE AND ANSWERING QUESTIONS MORE APPROPRIATELY. SHE IS SLEEPY. SHE CONFIRMS SHE TOOK OXYCONTIN TWO PILLS STRENGTH 15 MG EA
--- NOTE | 2019-08-30 14:53 | NUR ---
REPORT RECEIVED FROM PERLA PEPPER. PLAN OF CARE DISCUSSED
--- NOTE | 2019-08-30 15:20 | NUR ---
EL, PSYCH FULL TIME IN ROOM AT THIS TIME
[2019-08-30 15:59] VITALS: BP 112/57
--- NOTE | 2019-08-30 16:04 | NUR ---
PATIENT TITRATED DOWN TO BASELINE HOME O2 USE OF 2L, SPO2 OF 96%. PATIENT A&OX4, EL, PSYCH BLEACH MIXER, CLEARED PATIENT FOR SAFE DISCHARGE
--- NOTE | 2019-08-30 16:18 | NUR ---
Patient/Caregiver given discharge instructions and they have confirmed that they understand the instructions. Patient ambulatory with steady gait. Patient has own home O2 with her, set at 2L
[2019-08-30] MEDS ORDERED: MIDAZOLAM 1 MG/ML, 5ML ONE (18:28)
== END 2019-08-30 16:25 | disposition home or self-care (01) ==
LOC: ED 14:43
DX: T40.2X2A Poisoning by other opioids, intentional self-harm, initial encounter (principal); R94.31 Abnormal electrocardiogram [ECG] [EKG]; I11.0 Hypertensive heart disease with heart failure; I50.9 Heart failure, unspecified; J44.9 Chronic obstructive pulmonary disease, unspecified; E78.5 Hyperlipidemia, unspecified; I25.2 Old myocardial infarction; Z90.5 Acquired absence of kidney
CPT/HCPCS: 93005; 99283; J2250

== ENCOUNTER 2019-12-26 10:25 | Emergency (ER) | payer MEDICARE, MEDICAID ==
[~2019-12-26] VITALS: Ht 167.6 cm; Wt 84.3 kg
[~2019-12-26 10:25] MED LIST changes: -OXYC15TA PO; +OXYC15TA3 PO; -OXYC30TA PO; +OXYC30TA3 PO; -PANT40TA5 PO; +PANT40TA6 PO
[2019-12-26] MEDS ORDERED: LEVETIRACETAM 1,000 MG in SODIUM CHLORIDE 0.9% 100 ML IV ONE (11:00)
[2019-12-26] MEDS ORDERED: SODIUM CHLORIDE FLUSH 10ML SYR IVF ONE (11:00)
[2019-12-26] MEDS ORDERED: DIPHENHYDRAMINE 50 MG/ML, 1ML IVPush ONE (11:00)
[2019-12-26] MEDS ORDERED: MORPHINE SULFATE 4 MG/ML, 1ML IVPush ONE (11:00)
[2019-12-26] MEDS ORDERED: PROMETHAZINE 25 MG/ML, 1ML IM ONE (11:00)
--- NOTE | 2019-12-26 11:08 | NUR ---
Task rn: 2.5 inch 18 gauge ultrasound piv placed from which labs were drawn
--- NOTE | 2019-12-26 11:13 | NUR ---
PT HAS CO N/V FOR 3 DAYS, UNABLE TO KEEP MEDS DOWN. DENIES TRAUMA. 5 SEIZURES SINCE THEN. DENEIS CP, SOB OR COUGH THAT IS NEW. TELLER SUPERVISOR IN PLACE, SEIZURE PRECAUTIONS IN PLACE.
[2019-12-26] MEDS ORDERED: DIPHENHYDRAMINE 50 MG/ML, 1ML ONE (11:15)
[2019-12-26] MEDS ORDERED: PROMETHAZINE 25 MG/ML, 1ML ONE (11:15)
[2019-12-26] MEDS ORDERED: MORPHINE SULFATE 4 MG/ML, 1ML ONE (11:15)
[2019-12-26 11:18] LABS: BASOPHILS # (AUTO) 0.01 x10^3/uL (0-0.1); BASOPHILS % (AUTO) 0 % (0-1); EOSINOPHILS # (AUTO) 0.06 x10^3/uL (0-0.4); EOSINOPHILS % (AUTO) 2 % (1-7); LYMPHOCYTES # (AUTO) 0.76 x10^3/uL (1-3.4); LYMPHOCYTES % (AUTO) 21 % (22-44); MD NO; MEAN CORPUSCULAR HEMOGLOBIN 28.3 pg (27.0-34.8); MEAN CORPUSCULAR VOLUME 88.3 fL (80-100); MEAN PLATELET VOLUME 7.8 fL (7.4-10.4); MONOCYTES # (AUTO) 0.32 x10^3/uL (0.2-0.8); MONOCYTES % (AUTO) 9 % (2-9); NEUTROPHILS # (AUTO) 2.56 x10^3/uL (1.8-6.8); NEUTROPHILS % (AUTO) 69 % (42-75); PLATELET COUNT 265 x10^3/uL (130-400); RED BLOOD COUNT 4.55 x10^6/uL (3.82-5.3); RED CELL DISTRIBUTION WIDTH 14.6 % (9.6-15.2)
[2019-12-26 11:29] LABS: ALANINE AMINOTRANSFERASE 15 U/L (12-78); ALBUMIN 3.4 g/dL (3.4-5.0); CALCIUM 9.8 mg/dL (8.5-10.1); CREATININE 0.63 mg/dL (0.55-1.02)
[2019-12-26 11:31] LABS: ALKALINE PHOSPHATASE 138 U/L (45-117); BILIRUBIN,TOTAL 0.3 mg/dL (0.2-1.0); TOTAL PROTEIN 7.7 g/dL (6.4-8.2)
[2019-12-26 11:44] LABS: ANION GAP 6 mmol/L (5-15); CHLORIDE 100 mmol/L (98-107)
--- NOTE | 2019-12-26 12:08 | NUR ---
PT MEDICATED FOR PAIN, NAUSEA, KEPPRA INFUSING. PT RESTING, FAMILY AT BEDSIDE
[2019-12-26] MEDS ORDERED: HYDROmorphone 2 MG/ML, 1ML ONE (12:28)
[2019-12-26] MEDS ORDERED: HYDROmorphone 2 MG/ML, 1ML IVPush PRN (12:30)
--- NOTE | 2019-12-26 12:32 | NUR ---
BREAK RN: PT MEDICATED FOR PAIN PER MAR.
--- NOTE | 2019-12-26 12:34 | NUR ---
ALL RESULTS ARE BACK AT THIS TIME. CHART UP FOR RECHECK.
--- NOTE | 2019-12-26 13:34 | NUR ---
Patient/Caregiver given discharge instructions and they have confirmed that they understand the instructions. Patient ambulatory with steady gait.
[2019-12-26 13:59] VITALS: BP 119/83
== END 2019-12-26 14:01 | disposition home or self-care (01) ==
LOC: ED 10:49
DX: J18.1 Lobar pneumonia, unspecified organism (principal); R11.2 Nausea with vomiting, unspecified; R19.7 Diarrhea, unspecified; R06.02 Shortness of breath; I44.4 Left anterior fascicular block; I51.7 Cardiomegaly
CPT/HCPCS: 36415; 71045; 80053; 84145; 85025; 93005; 96365; 96372; 96375; 99285; J1170; J1200; J1953; J2270; J2550

== ENCOUNTER 2020-01-01 09:46 | Emergency (ER) | payer MEDICARE, MEDICAID ==
[~2020-01-01] VITALS: Ht 165.1 cm; Wt 90.0 kg
[2020-01-01 09:49] VITALS: BP 92/62
--- NOTE | 2020-01-01 10:02 | NUR ---
MANAGER PACU: PT AND SPOUSE EDUCATED ON VISITOR POLICY. SPOUSE BECAME UPSET AND TOLD PT "YOU CAN FIND YOUR OWN WAY HOME THEN, WHAT DO YOU WANT TO DO THEN". PT AND SPOUSE THEN STATED THEY WANTED TO LEAVE AND NOT BE EVALUATED. PT ADVISED TO STAY FOR EVAL BUT REFUSED. WHEELED PT OUT OF TRAIGE ROOM. ANALYST COMPETITIVE INTELLIGENCE UPDATED.
== END 2020-01-01 10:03 | disposition left against medical advice (07) ==
LOC: ED 09:59
DX: R53.1 Weakness (principal); Z53.21 Procedure and treatment not carried out due to patient leaving prior to being seen by health care provider
CPT/HCPCS: 93005

== ENCOUNTER 2020-07-15 09:42 | Day surgery (SDC) | payer MEDICARE, MEDICAID ==
[2020-07-14 12:00] LABS: ALBUMIN 3.2 g/dL (3.4-5.0); ANION GAP 3 mmol/L (5-15); CALCIUM 8.6 mg/dL (8.5-10.1); CHLORIDE 108 mmol/L (98-107)
[2020-07-14 12:03] LABS: ALANINE AMINOTRANSFERASE 19 U/L (12-78); ALKALINE PHOSPHATASE 142 U/L (45-117); BILIRUBIN,TOTAL 0.4 mg/dL (0.2-1.0); CREATININE 0.72 mg/dL (0.55-1.02); TOTAL PROTEIN 6.5 g/dL (6.4-8.2)
[~2020-07-15] VITALS: Ht 167.6 cm; Wt 91.9 kg
[~2020-07-15 09:42] MED LIST changes: -CYCL-259 PO; +CYCL10TA2 PO; +DOCU-131 PO; +FLUT1BLS15 INH; +GABA100C PO; -HYDR-3245 PO; +HYDR1TAB53 PO; +METH-639 PO; -METH500T7 PO; +MULT-658 PO; -OXYC-306 PO; -OXYC-307 PO; +OXYC-380 PO; +OXYC1TAB17 PO; +VITA1TAB19 PO; +folic acid PO; +vitamin c PO
[2020-07-15 10:15] VITALS: BP 114/78
[2020-07-15] MEDS ORDERED: CHLORHEXIDINE 15 ML UDC PO ONE (10:30)
[2020-07-15] MEDS ORDERED: LACTATED RINGERS 1,000 ML IV SCH (10:30)
[2020-07-15] MEDS ORDERED: PROPOFOL 10 MG/ML, 20ML ONE ×3 (12:07→12:34)
[2020-07-15] MEDS ORDERED: OXYcodone 5 MG/5 ML ORAL.SOL UDC ONE (12:44)
[2020-07-15] MEDS ORDERED: LABETALOL 5MG/ML, 20ML IV PRN (13:00)
[2020-07-15] MEDS ORDERED: ACETAMINOPHEN 325 MG TABLET PO PRN (13:00)
[2020-07-15] MEDS ORDERED: DIPHENHYDRAMINE 50 MG/ML, 1ML IVPush PRN ×2 (13:00)
[2020-07-15] MEDS ORDERED: EPHEDRINE 50 MG/ML, 1ML IVPush PRN (13:00)
[2020-07-15] MEDS ORDERED: MEPERIDINE/PF 25MG/0.5ML IVPush PRN (13:00)
[2020-07-15] MEDS ORDERED: DIAZEPAM 5 MG/ML, 2ML IVPush PRN (13:00)
[2020-07-15] MEDS ORDERED: ALBUTEROL SULFATE 2.5 MG/3 ML NPPB PRN (13:00)
[2020-07-15] MEDS ORDERED: FENTANYL PF 100 MCG/2ML IV PRN (13:00)
[2020-07-15] MEDS ORDERED: PROMETHAZINE 25 MG/ML, 1ML IVPush PRN (13:00)
[2020-07-15] MEDS ORDERED: HYDROmorphone 1 MG/ML, 1ML INJ IVPush PRN (13:00)
[2020-07-15] MEDS ORDERED: PROMETHAZINE 12.5 MG SUPP PR PRN (13:00)
[2020-07-15] MEDS ORDERED: ONDANSETRON 2MG/ML, 2ML IVPush PRN (13:00)
[2020-07-15] MEDS ORDERED: hydrALAzine 20 MG/ML, 1ML IV PRN (13:00)
[2020-07-15] MEDS ORDERED: MIDAZOLAM 1 MG/ML, 2ML IV PRN (13:00)
[2020-07-15] MEDS ORDERED: OXYcodone 5 MG/5 ML ORAL.SOL UDC PO PRN ×2 (13:00)
== END 2020-07-15 14:15 | disposition home or self-care (01) ==
LOC: OUT 09:42
PROVIDERS: ATTEND Internal Medicine Gastroenterology
DX: R19.5 Other fecal abnormalities (principal); K64.4 Residual hemorrhoidal skin tags; J44.9 Chronic obstructive pulmonary disease, unspecified; I10 Essential (primary) hypertension; G40.909 Epilepsy, unspecified, not intractable, without status epilepticus; F32.9 Major depressive disorder, single episode, unspecified; F41.9 Anxiety disorder, unspecified; Z20.822 Contact with and (suspected) exposure to COVID-19; Z79.891 Long term (current) use of opiate analgesic; Z79.899 Other long term (current) drug therapy; Z85.118 Personal history of other malignant neoplasm of bronchus and lung; Z88.8 Allergy status to other drugs, medicaments and biological substances; Z90.49 Acquired absence of other specified parts of digestive tract; Z98.84 Bariatric surgery status; Z99.81 Dependence on supplemental oxygen; Z98.890 Other specified postprocedural states; Z83.71 Family history of colonic polyps; Z80.0 Family history of malignant neoplasm of digestive organs; Z83.79 Family history of other diseases of the digestive system
CPT/HCPCS: 36415; 45378; 80053; 93005; J2704; U0003

== ENCOUNTER 2020-08-23 10:31 | Inpatient (IN) | payer MEDICARE, MEDICAID ==
[~2020-08-23] VITALS: Ht 165.1 cm; Wt 95.0 kg
--- NOTE | 2020-08-23 10:50 | NUR ---
PT CAME IN AFTER HAVING "5 WTINESSED SEIZURES LAST NIGHT". PT DOES HAVE EPILEPSY AND TAKES KEPPRA AND HASNT MISSED A DOSE RECENTLY. PT ALSO REPORTS SHE IS HAVING EPISODES OF VOMITTING AND DIARRHEA. PT RESTING IN GURNEY. SIDERAILS UP. ACCOMPANIED BY . BLANKETS PROVIDED
[2020-08-23] MEDS ORDERED: ONDANSETRON 2MG/ML, 2ML ONE ×2 (11:27→15:35)
[2020-08-23] MEDS ORDERED: MORPHINE SULFATE 4 MG/ML, 1ML ONE ×4 (11:28→18:00)
[2020-08-23] MEDS ORDERED: LEVETIRACETAM 1,000 MG in SODIUM CHLORIDE 0.9% 100 ML IV ONE (11:30)
[2020-08-23] MEDS ORDERED: SODIUM CHLORIDE 0.9% 1,000 ML IV ONE ×2 (11:30→15:30)
[2020-08-23] MEDS ORDERED: SODIUM CHLORIDE FLUSH 10ML SYR IVF ONE (11:30)
[2020-08-23] MEDS: ONDANSETRON 2MG/ML, 2ML IVPush ONE ×2 (11:42→15:40)
[2020-08-23] MEDS: MORPHINE SULFATE 4 MG/ML, 1ML IVPush PRN ×4 (11:42→18:06)
[2020-08-23 11:47] LABS: BASOPHILS % (AUTO) 1 % (0-1); EOSINOPHILS % (AUTO) 3 % (1-7); LYMPHOCYTES % (AUTO) 20 % (22-44); MEAN CORPUSCULAR HEMOGLOBIN 29.3 pg (27.0-34.8); MEAN CORPUSCULAR HGB CONC 32.5 g/dL (32.4-35.8); MEAN PLATELET VOLUME 7.2 fL (7.4-10.4); MONOCYTES % (AUTO) 6 % (2-9); NEUTROPHILS % (AUTO) 71 % (42-75); PLATELET COUNT 345 x10^3/uL (130-400); RED BLOOD COUNT 3.59 x10^6/uL (3.82-5.3); RED CELL DISTRIBUTION WIDTH 14.3 % (9.6-15.2)
[2020-08-23 11:49] LABS: MD NO
[2020-08-23 11:59] LABS: ALANINE AMINOTRANSFERASE 21 U/L (12-78); ALBUMIN 3.1 g/dL (3.4-5.0); ANION GAP 3 mmol/L (5-15); CALCIUM 8.6 mg/dL (8.5-10.1); CHLORIDE 106 mmol/L (98-107); CREATININE 0.59 mg/dL (0.55-1.02)
[2020-08-23 12:02] LABS: ALKALINE PHOSPHATASE 156 U/L (45-117); BILIRUBIN,TOTAL 0.3 mg/dL (0.2-1.0); TOTAL PROTEIN 5.9 g/dL (6.4-8.2)
[2020-08-23 12:12] LABS: MICROSCOPIC NOT IND
[2020-08-23] MEDS ORDERED: PROMETHAZINE 25 MG/ML, 1ML ONE (12:25)
[2020-08-23] MEDS ORDERED: HYDROmorphone 1 MG/ML, 1ML INJ ONE (12:25)
[2020-08-23] MEDS ORDERED: PROMETHAZINE 25 MG/ML, 1ML IM ONE (12:30)
[2020-08-23] MEDS ORDERED: HYDROmorphone 1 MG/ML, 1ML INJ IM ONE (12:30)
--- NOTE | 2020-08-23 12:34 | NUR ---
UNABLE TO GAIN PIV ACCESS. 2 RNs TRIED WITH ULTRASOUND. MD NOTIFIED. PT MEDICATED IM PER JUN. WILL CONDUCT PO CHALLENGE IN 30 MINUTES
--- NOTE | 2020-08-23 13:06 | NUR ---
REPORT RECEIVED FROM YURY. POC PO CHALLENGE. UNABLEL TO OBTAIN IV, IM DILAUDID AND PHENERGAN ADMINSTERED.
--- NOTE | 2020-08-23 13:10 | NUR ---
PT FAILED PO CHALLENGE.
--- NOTE | 2020-08-23 13:35 | NUR ---
MD BEDSIDE DISCUSSED POC WITH PT. PT ADALID STARTED.
[2020-08-23] MEDS ORDERED: ONDANSETRON 2MG/ML, 2ML IVPush ONE (14:00)
--- NOTE | 2020-08-23 14:12 | NUR ---
PT REPORTS WEARS 3L BASELINE NC.
--- NOTE | 2020-08-23 14:14 | NUR ---
PT IN RAD FOR ESOPHOGRAM
--- NOTE | 2020-08-23 14:32 | NUR ---
PT IN IR.
--- NOTE | 2020-08-23 15:00 | NUR ---
AT BEDSIDE TO RECHECK PT. PT AWAKE AND ALERT, RESP EVEN AND UNLABORED,
[2020-08-23] MEDS ORDERED: SODIUM CHLORIDE FLUSH 10ML SYR IVF PRN (15:30)
[2020-08-23] MEDS ORDERED: PROMETHAZINE 25 MG/ML, 1ML IM PRN (16:00)
[2020-08-23] MEDS ORDERED: morphine SULFATE 10 MG/ML, 1ML IVPush PRN (16:00)
[2020-08-23] MEDS ORDERED: ENALAPRILAT 1.25 MG/ML, 2ML IVPush PRN (16:00)
[2020-08-23] MEDS ORDERED: ONDANSETRON 2MG/ML, 2ML IVPush PRN (16:00)
--- NOTE | 2020-08-23 16:18 | NUR ---
PT RESTING ON GURNEY W/ CALL LIGHT IN REACH AND SIDE RAILS UPX2. VSS, NADN. AWAITING ADMIT.
--- NOTE | 2020-08-23 17:52 | NUR ---
REPORT TO WALTER DUNCAN. PT AWAKE AND ALERT, RESP EVEN AND UNLABORED, NADN. AWAITING TRANSFER.
--- NOTE | 2020-08-23 18:08 | NUR ---
PT REPORTS WEARING O2 R/T LUNG CA, HAS BEEN IN REMISSION FOR APPROX 10 YEARS.
[2020-08-23] MEDS ORDERED: HYDROmorphone 1 MG/ML, 1ML INJ IV PRN (20:30)
[2020-08-23] MEDS: LACTATED RINGERS 1,000 ML IV SCH (20:42)
[2020-08-23 21:00] VITALS: BP 122/74
[2020-08-23] MEDS: FAMOTIDINE 20 MG/2 ML IVPush SCH (21:00)
[2020-08-23] MEDS: LEVETIRACETAM 1,000 MG in SODIUM CHLORIDE 0.9% 100 ML IV SCH (23:00)
[2020-08-23] MEDS: TEMAZEPAM 15 MG CAPSULE PO PRN (23:41)
[2020-08-24] MEDS: HYDROmorphone 1 MG/ML, 1ML INJ IV PRN ×8 (00:16→22:08)
[2020-08-24 01:16] VITALS: BP 115/73
[2020-08-24 05:18] LABS: BASOPHILS % (AUTO) 1 % (0-1); EOSINOPHILS % (AUTO) 4 % (1-7); LYMPHOCYTES % (AUTO) 30 % (22-44); MEAN CORPUSCULAR HEMOGLOBIN 29.4 pg (27.0-34.8); MEAN CORPUSCULAR HGB CONC 32.7 g/dL (32.4-35.8); MEAN PLATELET VOLUME 7.7 fL (7.4-10.4); MONOCYTES % (AUTO) 8 % (2-9); NEUTROPHILS % (AUTO) 58 % (42-75); PLATELET COUNT 278 x10^3/uL (130-400); RED BLOOD COUNT 3.42 x10^6/uL (3.82-5.3); RED CELL DISTRIBUTION WIDTH 14.3 % (9.6-15.2)
[2020-08-24 05:24] LABS: MD NO
[2020-08-24 05:26] LABS: ANION GAP 2 mmol/L (5-15); CALCIUM 7.8 mg/dL (8.5-10.1); CHLORIDE 108 mmol/L (98-107)
[2020-08-24 05:27] LABS: CREATININE 0.43 mg/dL (0.55-1.02)
[2020-08-24] MEDS: LACTATED RINGERS 1,000 ML IV SCH ×2 (06:16→19:55)
[2020-08-24 06:37] VITALS: BP 121/83
[2020-08-24] MEDS: FAMOTIDINE 20 MG/2 ML IVPush SCH ×2 (08:29→20:59)
[2020-08-24 12:02] VITALS: BP 170/90
[2020-08-24] MEDS: LEVETIRACETAM 1,000 MG in SODIUM CHLORIDE 0.9% 100 ML IV SCH (12:17)
[2020-08-24] MEDS ORDERED: CHLORHEXIDINE 15 ML UDC ONE (12:27)
[2020-08-24] MEDS ORDERED: PROPOFOL 10 MG/ML, 20ML ONE (12:47)
[2020-08-24] MEDS: GABAPENTIN 300 MG CAPSULE PO SCH ×2 (17:16→21:00)
[2020-08-24] MEDS: GABAPENTIN 100 MG CAPSULE PO SCH ×2 (17:16→21:00)
[2020-08-24 18:53] VITALS: BP 169/86
[2020-08-24] MEDS: ALBUTEROL/IPRATROPIUM 2.5MG/0.5MG, 3 ML NPPB SCH (20:00)
[2020-08-24] MEDS: DOCUSATE 100 MG CAPSULE PO SCH (20:52)
[2020-08-24] MEDS: OxyconTIN ER 10 MG TAB.ER PO SCH (20:59)
[2020-08-24] MEDS: LEVETIRACETAM 100 MG/ML ORAL SOL PO SCH (21:00)
[2020-08-25 01:06] VITALS: BP 136/85
[2020-08-25] MEDS: HYDROmorphone 1 MG/ML, 1ML INJ IV PRN ×7 (01:47→21:27)
[2020-08-25] MEDS: LACTATED RINGERS 1,000 ML IV SCH ×2 (05:52→16:59)
[2020-08-25 06:05] LABS: BASOPHILS % (AUTO) 1 % (0-1); EOSINOPHILS % (AUTO) 4 % (1-7); LYMPHOCYTES % (AUTO) 24 % (22-44); MEAN CORPUSCULAR HEMOGLOBIN 29.5 pg (27.0-34.8); MEAN CORPUSCULAR HGB CONC 33.1 g/dL (32.4-35.8); MEAN PLATELET VOLUME 7.5 fL (7.4-10.4); MONOCYTES % (AUTO) 9 % (2-9); NEUTROPHILS % (AUTO) 62 % (42-75); PLATELET COUNT 212 x10^3/uL (130-400); RED BLOOD COUNT 3.47 x10^6/uL (3.82-5.3)
[2020-08-25 06:09] LABS: MD NO
[2020-08-25 06:18] LABS: ANION GAP 2 mmol/L (5-15); CALCIUM 8.4 mg/dL (8.5-10.1); CHLORIDE 109 mmol/L (98-107)
[2020-08-25] MEDS: ALBUTEROL/IPRATROPIUM 2.5MG/0.5MG, 3 ML NPPB SCH ×4 (06:46→19:20)
[2020-08-25 06:57] VITALS: BP 150/91
[2020-08-25] MEDS: GABAPENTIN 100 MG CAPSULE PO SCH ×3 (08:38→20:12)
[2020-08-25] MEDS: GABAPENTIN 300 MG CAPSULE PO SCH ×3 (08:38→20:11)
[2020-08-25] MEDS: FOLIC ACID 1 MG TABLET PO SCH (08:39)
[2020-08-25] MEDS: MULTIVITAMIN 1 TABLET PO SCH (08:39)
[2020-08-25] MEDS: OxyconTIN ER 10 MG TAB.ER PO SCH ×2 (08:39→20:11)
[2020-08-25] MEDS: FAMOTIDINE 20 MG/2 ML IVPush SCH ×2 (08:39→20:12)
[2020-08-25] MEDS: LISINOPRIL 10 MG TABLET PO SCH (08:39)
[2020-08-25] MEDS: LEVETIRACETAM 100 MG/ML ORAL SOL PO SCH ×2 (08:46→20:12)
[2020-08-25] MEDS: DOCUSATE 100 MG CAPSULE PO SCH ×2 (09:00→20:12)
[2020-08-25] MEDS: TEMPLATE NON-FORMULARY MED. (Vitamin B Complex** (B Complex**) 1 TAB) PO SCH (09:00)
[2020-08-25 13:35] VITALS: BP 143/89
[2020-08-25 18:49] VITALS: BP 162/98
[2020-08-25] MEDS: TEMAZEPAM 15 MG CAPSULE PO PRN (21:55)
[2020-08-26 00:39] VITALS: BP 131/79
[2020-08-26] MEDS: HYDROmorphone 1 MG/ML, 1ML INJ IV PRN ×6 (01:20→18:12)
[2020-08-26] MEDS: LACTATED RINGERS 1,000 ML IV SCH ×2 (01:23→10:01)
[2020-08-26 05:03] LABS: BASOPHILS % (AUTO) 1 % (0-1); EOSINOPHILS % (AUTO) 5 % (1-7); LYMPHOCYTES % (AUTO) 24 % (22-44); MEAN CORPUSCULAR HEMOGLOBIN 29.3 pg (27.0-34.8); MEAN CORPUSCULAR HGB CONC 32.7 g/dL (32.4-35.8); MEAN PLATELET VOLUME 7.6 fL (7.4-10.4); MONOCYTES % (AUTO) 7 % (2-9); NEUTROPHILS % (AUTO) 63 % (42-75); PLATELET COUNT 203 x10^3/uL (130-400); RED CELL DISTRIBUTION WIDTH 13.7 % (9.6-15.2)
[2020-08-26 05:05] LABS: MD NO
[2020-08-26 05:13] LABS: ANION GAP 4 mmol/L (5-15); CALCIUM 8.2 mg/dL (8.5-10.1); CHLORIDE 106 mmol/L (98-107); CREATININE 0.51 mg/dL (0.55-1.02)
[2020-08-26 06:16] VITALS: BP 168/105
[2020-08-26] MEDS: ALBUTEROL/IPRATROPIUM 2.5MG/0.5MG, 3 ML NPPB SCH ×3 (06:49→14:00)
[2020-08-26] MEDS: LISINOPRIL 10 MG TABLET PO SCH (08:10)
[2020-08-26] MEDS: FAMOTIDINE 20 MG/2 ML IVPush SCH (08:11)
[2020-08-26] MEDS: MULTIVITAMIN 1 TABLET PO SCH (08:11)
[2020-08-26] MEDS: GABAPENTIN 100 MG CAPSULE PO SCH ×2 (08:11→14:54)
[2020-08-26] MEDS: FOLIC ACID 1 MG TABLET PO SCH (08:11)
[2020-08-26] MEDS: GABAPENTIN 300 MG CAPSULE PO SCH ×2 (08:11→14:54)
[2020-08-26] MEDS: DOCUSATE 100 MG CAPSULE PO SCH (08:12)
[2020-08-26] MEDS: OxyconTIN ER 10 MG TAB.ER PO SCH (08:12)
[2020-08-26] MEDS: LEVETIRACETAM 100 MG/ML ORAL SOL PO SCH (08:19)
[2020-08-26] MEDS: TEMPLATE NON-FORMULARY MED. (Vitamin B Complex** (B Complex**) 1 TAB) PO SCH (08:19)
[2020-08-26 12:28] VITALS: BP 149/85
[2020-08-26] MEDS ORDERED: FAMOTIDINE 20 MG TABLET PO SCH (21:00)
== END 2020-08-26 19:10 | disposition home or self-care (01) | DRG 392 ==
LOC: ED 11:02 → EDIP 15:23 → 3N 17:48
PROVIDERS: ADMIT Hospitalist; ATTEND Family Medicine
PROC: 0T9B70Z Drainage of Bladder with Drainage Device, Via Natural or Artificial Opening (ICD-10-PCS; 2020-08-23)
PROC: 0D758ZZ Dilation of Esophagus, Via Natural or Artificial Opening Endoscopic (ICD-10-PCS; 2020-08-24)
PROC: 0DB58ZX Excision of Esophagus, Via Natural or Artificial Opening Endoscopic, Diagnostic (ICD-10-PCS; principal; 2020-08-24 13:30)
PROC: 02HV33Z Insertion of Infusion Device into Superior Vena Cava, Percutaneous Approach (ICD-10-PCS; 2020-08-25)
PROC: B5181ZA Fluoroscopy of Superior Vena Cava using Low Osmolar Contrast, Guidance (ICD-10-PCS; 2020-08-25)
PROC: B548ZZA Ultrasonography of Superior Vena Cava, Guidance (ICD-10-PCS; 2020-08-25)
DX: K22.2 Esophageal obstruction (principal); J96.11 Chronic respiratory failure with hypoxia; J96.12 Chronic respiratory failure with hypercapnia; I50.32 Chronic diastolic (congestive) heart failure; F11.23 Opioid dependence with withdrawal; K22.4 Dyskinesia of esophagus; E78.5 Hyperlipidemia, unspecified; F31.9 Bipolar disorder, unspecified; G40.409 Other generalized epilepsy and epileptic syndromes, not intractable, without status epilepticus; G89.29 Other chronic pain; I11.0 Hypertensive heart disease with heart failure; I25.2 Old myocardial infarction; J44.9 Chronic obstructive pulmonary disease, unspecified; Z80.1 Family history of malignant neoplasm of trachea, bronchus and lung; Z80.7 Family history of other malignant neoplasms of lymphoid, hematopoietic and related tissues; Z82.49 Family history of ischemic heart disease and other diseases of the circulatory system; Z83.3 Family history of diabetes mellitus; Z85.05 Personal history of malignant neoplasm of liver; Z85.118 Personal history of other malignant neoplasm of bronchus and lung; Z90.5 Acquired absence of kidney; Z90.710 Acquired absence of both cervix and uterus; Z98.84 Bariatric surgery status; F41.9 Anxiety disorder, unspecified; G62.9 Polyneuropathy, unspecified; M54.9 Dorsalgia, unspecified; Z20.822 Contact with and (suspected) exposure to COVID-19; Z88.8 Allergy status to other drugs, medicaments and biological substances
CPT/HCPCS: 36415; 36573; 36600; 74220; 74230; 80048; 80053; 81003; 82140; 82803; 83690; 83735; 84100; 85025; 87635; 88305; 94640; G0378; J1170; J1953; J2405; J2550; J2704; C1751; J2270; J7030; J7120